=== PATIENT | male | born 1995 | race Caucasian/White ===

== ENCOUNTER 2016-06-13 20:29 | Emergency (ER) | payer OTHER ==
--- NOTE | 2016-06-13 22:30 | REPUSA ---
TESTICULAR SONOGRAM History: Pain. Comparison studies: None available Technique: Multiple real-time images of the scrotal contents were obtained using grayscale and color spectral Doppler flow . Findings: Right testes measures 5.4 x 2.9 x 3.3 cm the left testes measures 5.3 x 2.9 x 3.4 cm. Doppler flow wa s established to both testes although slightly increased on left. There are no findings suspicious fo r testicular torsion. There are also no findings suspicious for testicular malignancy. Both epididymis measure 8 mm, with bilateral simple cysts versus spermatoceles measuring between 3-3. 6 mm on right and 4.1 mm on left. No findings suspicious for epididymitis are identified. A physiologic amount of fluid is identified i n each hemiscrotom. Impression: 1. No evidence of testicular torsion at this time. Mildly increased flow to the left testes noted whi ch is nonspecific although may suggest orchitis in the proper clinical context. 2. Both epididymis measure 8 mm, with bilateral simple cysts versus spermatoceles measuring between 3 -3.6 mm on right and 4.1 mm on left.
[2016-06-13] MEDS ORDERED: cefTRIAXone SOD 250 MG VIAL (J0696) As Ordered ONE (23:35)
[2016-06-13] MEDS ORDERED: DOXYCYCLINE HYCLATE 100 MG TAB As Ordered ONE (23:35)
[2016-06-13] MEDS ORDERED: LIDOCAINE 1% MDV 20ML VIAL As Ordered ONE (23:35)
[2016-06-13] MEDS ORDERED: KETOROLAC 30 MG/ML VIAL (J1885) As Ordered ONE (23:35)
--- NOTE | 2016-06-14 00:19 | EDDOCDS ---
Physician Documentation [facility] Name: Santos Treadwell Age: 20 yrs Sex: Male : 1995 Arrival Date: 06/13/2016 Time: 20:29 Bed 7 Private MD: DARWIN MARSHALL Disposition: 06/13 23:31 Critical Care: Critical care not applicable. 06/14 00:08 A printed prescription for a controlled substance(s) was provided because [facility] is not able to accept EPCS. Disposition: 06/13/16 23:32 Discharged to Home/Self Care. Impression: Epididymo-orchitis. - Condition is Stable. - Discharge Instructions: Epididymitis. - Prescriptions for [place] 5- 325 mg Oral Tablet - take 1 tablet by ORAL route every 6 hours As needed MDD: 4 tabs; 20 tablet. Doxycycline Monohydrate 100 mg Oral Tablet - take 1 tablet by ORAL route every 12 hours for 10 days; 20 tablet. - Medication Reconciliation, Local Pharmacy Hours form. - Follow up: Darwin [facility]; When: 2 - 3 days; Reason: Recheck today's complaints, Continuance of care. - Problem is new. - Symptoms have improved. HPI: 06/13 23:06 This 20 yrs old Male presents to ER via Wheelchair with complaints of Groin Pain. pc 23:06 The history is obtained from the patient. He has been having left testicular pain and pc painful "lumps" in his left grin for "maybe a day". He denies any urethral discharge, denies trauma, is sexually active with protection. At their worst, the symptoms were a 7 out of 10. In the emergency department, the symptoms are a 7 out of 10. The patient has not experienced similar symptoms in the past. The patient has not recently seen a physician. Historical: - Allergies: no known allergies; - Home Meds: 1. none - PMHx: none; - PSHx: none; - The history from nurses notes was reviewed: and I agree with what is documented. - Social history: Smoking status: Patient states former smoker of tobacco. No barriers to communication noted, The patient speaks fluent Bruneian. - : The pt / caregiver states he / she is not on anticoagulants. Home medication list is obtained from the patient. - Hospitalizations: : No recent hospitalization is reported. - Exposure Risk Screening:: None identified. - Immunization history:: All immunizations up-to-date. - Family history: Not pertinent. - Social history:: the patient is a non-smoker, the patient does not drink alcohol. ROS: 23:06 All systems are negative except as listed. pc Exam: 23:06 General Appearance: no acute distress, alert. pc 23:06 Abdomen: soft, non-tender, no organomegaly, normal bowel sounds, no masses appreciated, no hernias palpated with/without gravity or Valsalva 23:06 : Male external genitalia: tenderness, bilateral epididymis, without skin color changes, without testicular pain, with mild painful lymph adenopathy in both inguinal areas. No urethral discharge noted. Vital Signs: 20:31 BP 122 / 57; Pulse 64; Resp 18; Temp 98.9; Pulse Ox 99% ; Weight 87.54 kg / 192.99 lbs; elp Height 73 in. (185.42 cm); Pain 7/10; 06/14 00:16 BP 129 / 60; Pulse 57; Resp 18; Temp 97.2; Pulse Ox 96% ; Pain 1/10; mlc 06/13 20:31 Body Mass Index 25.46 (87.54 kg, 185.42 cm) elp MDM: 06/13 21:20 Scrotal, US Ordered. EDMS 21:31 DUPLEX SCAN LIMITED (DOPPLER) Ordered. EDMS 23:06 Differential Diagnosis: bilateral epididymitis. left worse than right; bilateral pc inguinal lymph adenopathy. Plan: US, labs, meds, advice. 23:13 GC & Chlamydia Amplification Ordered. EDMS 23:13 Test interpretation: Ultrasound - interpreted by Radiologist, Scrotal bilateral pc epididymal cysts. no testicular torsion. increased blood flow to left testes which may indicated orchitis. 23:31 Scrotal, US Reviewed. pc 23:31 cefTRIAXone 250 mg IM once ordered. pc 23:31 Doxycycline 100 mg PO once ordered. pc 23:31 Data reviewed: old medical records, vital signs, nurses notes, all radiology studies pc and available results. The patient has been re-examined and re-evaluated. The patient's symptoms have mildly improved after treatment. Disposition: The historical points, examination findings, and any diagnostic results supporting the provided diagnosis, were discussed with the patient or legal guardian. The need for outpatient follow up with the provider listed on their discharge instructions was discussed. They were encouraged to return to [facility], or the nearest ED, if symptoms worsen/persist, or for any other questions/concerns. 23:32 ketorolac 60 mg IM once ordered. 23:40 Financial registration complete. pm4 23:46 [facility] Payment Agreement was scanned into PowerSmart and attached to record. pm4 Administered Medications: 23:45 Drug: cefTRIAXone 250 mg [ceftriaxone 250 mg solution for injection (250 mg)] Route: mlc IM; Site: left gluteus; 06/14 00:17 Follow up: Response: No Adverse Reaction [facility] 06/13 23:45 Drug: Doxycycline 100 mg [doxycycline hyclate 100 mg tablet (1 tabs)] Route: PO; [facility] 06/14 00:17 Follow up: Response: No Adverse Reaction [facility] 06/13 23:45 Drug: ketorolac 60 mg [ketorolac 30 mg/mL (1 mL) injection solution (2 mL)] Route: IM; [facility] Site: right gluteus; 06/14 00:17 Follow up: Response: Pain is decreased [facility] Signatures: Dispatcher MedHost EDDennis Moody MD MD Crissy Sosa RN RN rs3 Maira Hanson RN RN [facility] Jarad Ivey, [place] Reg pm4 The chart was reviewed and I authenticate all verbal orders and agree with the evaluation and treatment provided.Attachments: 06/13 23:46 [facility] Payment Agreement pm4 MTDD
--- NOTE | 2016-06-14 00:19 | EDDOCDS ---
Nurse's Notes [facility] Name: Santos Treadwell Age: 20 yrs Sex: Male : 1995 Arrival Date: 06/13/2016 Time: 20:29 Bed 7 Private MD: DARWIN MARSHALL Diagnosis: Epididymo-orchitis Presentation: 06/13 20:33 Presenting complaint: Patient states: Scrotal pain since this evening. sudden onset of rs3 pain with severe cough this evening. Adult Sepsis Screening: The patient does not have new or worsening altered mentation. Patient's respiratory rate is less than 22. Systolic blood pressure is greater than 100. Patient has a qSOFA score of 0- Negative Sepsis Screen. Suicide/Homicide risk assessment- the patient denies having any suicidal and/or homicidal ideations and does not present with any other emotional, behavioral or mental health complaints. 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 Transition of care: patient was not received from another setting of care. 20:33 Acuity: DORITA Level 3 rs3 20:33 Method Of Arrival: Wheelchair rs3 Triage Assessment: 20:36 General: Appears in no apparent distress. Pain: Pain currently is 7 out of 10 on a pain rs3 scale. Pt Declines HIV testing. GI: Reports scrotal pain. Historical: - Allergies: no known allergies; - Home Meds: 1. none - PMHx: none; - PSHx: none; - The history from nurses notes was reviewed: and I agree with what is documented. - Social history: Smoking status: Patient states former smoker of tobacco. No barriers to communication noted, The patient speaks fluent Maltese. - : The pt / caregiver states he / she is not on anticoagulants. Home medication list is obtained from the patient. - Hospitalizations: : No recent hospitalization is reported. - Exposure Risk Screening:: None identified. - Immunization history:: All immunizations up-to-date. - Family history: Not pertinent. - Social history:: the patient is a non-smoker, the patient does not drink alcohol. Screenin:24 Screening information is obtained from the patient. Fall risk: No risks identified. mlc Assistance ADL's: requires no assistance with activities of daily living. Abuse/DV Screen: The patient / caregiver reports he/she is: not in a situation that causes fear, pain or injury. Nutritional screening: No deficits noted. Advance Directives: Currently, there is a health care proxy, Ash Treadwell, brother. There is an active Power of Director Medical Economics, Ash Treadwell, brother. 23:24 home support is adequate. [facility] Assessment: 23:24 General: Appears in no apparent distress, comfortable, Behavior is appropriate for age, mlc cooperative. Pain: Location: left testicle Pain currently is 7 out of 10 on a pain scale. Neurological: Level of Consciousness is awake, alert, obeys commands, Oriented to person, place, time. Respiratory: Airway is patent Respiratory effort is even, unlabored, Respiratory pattern is regular, Breath sounds are clear bilaterally. Reports difficulty breathing after exercise. GI: Abdomen is flat, non- distended Bowel sounds present X 4 quads. Abd is soft X 4 quads. : Urine is clear. Derm: Skin is pink, warm & dry. 23:46 Reassessment: Patient appears in no apparent distress at this time. pt medicated per [facility] order. 06/14 00:16 General: Appears in no apparent distress, comfortable, Behavior is cooperative. Pain: [facility] Pain currently is 1 out of 10 on a pain scale. Neurological: Level of Consciousness is awake, alert, Oriented to person, place, time. Respiratory: Airway is patent Respiratory effort is even, unlabored, Respiratory pattern is regular. Vital Signs: 06/13 20:31 BP 122 / 57; Pulse 64; Resp 18; Temp 98.9; Pulse Ox 99% ; Weight 87.54 kg; Height 73 elp in. (185.42 cm); Pain 7/10; 06/14 00:16 BP 129 / 60; Pulse 57; Resp 18; Temp 97.2; Pulse Ox 96% ; Pain 1/10; mlc 06/13 20:31 Body Mass Index 25.46 (87.54 kg, 185.42 cm) el Vitals: 06/13 20:31 Log In Time: June 13, 2016 at 20:30. [facility] ED Course: 20:30 Patient visited by Terri Cardoza PCA. elp 20:30 [facility], D[facility] MICHEL[facility] is Private Physician. elp 20:30 Patient moved to Waiting elp 20:31 Patient moved to Pre RCE elp 20:35 Triage Initiated rs3 21:30 Patient moved to Ultrasound br3 21:47 Patient moved to Pre RCE br3 22:48 Maira Hanson RN is Primary Nurse. kmg1 22:48 Patient moved to 7 kmg1 22:59 Patient visited by Casa Duarte PCA. kb5 23:02 Dennis Andre MD is Attending Physician. pc 23:04 Patient visited by Casa Duarte PCA. kb5 23:06 Patient visited by Dennis Andre MD. pc 23:22 Scrotal, US Returned. EDMS 23:24 The patient / caregiver is instructed regarding the plan of care and ED course. mlc 23:26 Patient visited by Maira Hanson RN. mlc 23:26 GC & Chlamydia Amplification Sent. mlc 23:32 Darwin Michelle [facility] is Referral Physician. pc 23:45 Patient name changed from Santos\S\\S\Onofrei\S\ to Santos\S\Bakari\S\Onofrei. EDMS 23:46 Patient visited by Maira Hanson RN. [facility] 23:46 [facility] [place] Agreement was scanned into FolderBoy and attached to record. pm4 06/14 00:16 No IV's were initiated during this patient's visit. No procedures done that require [facility] assistance. Administered Medications: 06/13 23:45 Drug: cefTRIAXone 250 mg [ceftriaxone 250 mg solution for injection (250 mg)] Route: mlc IM; Site: left gluteus; 06/14 00:17 Follow up: Response: No Adverse Reaction [facility] 06/13 23:45 Drug: Doxycycline 100 mg [doxycycline hyclate 100 mg tablet (1 tabs)] Route: PO; [facility] 06/14 00:17 Follow up: Response: No Adverse Reaction [facility] 06/13 23:45 Drug: ketorolac 60 mg [ketorolac 30 mg/mL (1 mL) injection solution (2 mL)] Route: IM; [facility] Site: right gluteus; 06/14 00:17 Follow up: Response: Pain is decreased [facility] Order Results: Radiology Order: Scrotal, US Test: Scrotal, US REASON FOR EXAMINATION: testicular pain; ; TESTICULAR SONOGRAM; History: Pain.; Comparison studies: None available; Technique: Multiple real-time images of the scrotal contents were obtained using grayscale and color; spectral Doppler flow .; Findings:; Right testes measures 5.4 x 2.9 x 3.3 cm the left testes measures 5.3 x 2.9 x 3.4 cm. Doppler flow wa; s established to both testes although slightly increased on left. There are no findings suspicious fo; r testicular torsion. There are also no findings suspicious for testicular malignancy.; Both epididymis measure 8 mm, with bilateral simple cysts versus spermatoceles measuring between 3-3.; 6 mm on right and 4.1 mm on left.; No findings suspicious for epididymitis are identified. A physiologic amount of fluid is identified i; n each hemiscrotom.; Impression:; 1. No evidence of testicular torsion at this time. Mildly increased flow to the left testes noted whi; ch is nonspecific although may suggest orchitis in the proper clinical context.; 2. Both epididymis measure 8 mm, with bilateral simple cysts versus spermatoceles measuring between 3; -3.6 mm on right and 4.1 mm on left.; ; Outcome: 06/13 23:32 Discharge ordered by Provider. pc 06/14 00:16 Discharge Assessment: Patient awake, alert and oriented x 3. No cognitive and/or mlc functional deficits noted. Patient verbalized understanding of disposition instructions. patient administered narcotics - no. The following High Risk Discharge criteria are identified: None. Discharged to home ambulatory, with friend. Condition: good Condition: stable. Discharge instructions given to patient, Instructed on discharge instructions, follow up and referral plans. medication usage, no driving heavy equipment, Demonstrated understanding of instructions, medications, Pt was receptive of discharge instructions/ teaching. Prescriptions given X 2. No special radiology studies were completed. Ultrasound Study completed. Property sent home with patient. 00:17 Patient left the ED. [facility] Signatures: Dispatcher MedHost EDMS Dennis Andre MD MD Dawna Moore RN RN kmg1 Casa Duarte, BAR HELPER BAR HELPER kb5 Crissy Sosa RN RN rs3 Pamela Mesa br3 Terri Cardoza, BAR HELPER BAR HELPER elp Maira Hanson RN RN [facility] Jarad Ivey, Reg Reg pm4 MTDD
--- NOTE | 2016-06-16 01:19 | EDDOCDS ---
Nurse's Notes [facility] Name: Santos Treadwell Age: 20 yrs Sex: Male : 1995 Arrival Date: 06/13/2016 Time: 20:29 Bed 7 Private MD: DARWIN MARSHALL Diagnosis: Epididymo-orchitis Presentation: 06/13 20:33 Presenting complaint: Patient states: Scrotal pain since this evening. sudden onset of rs3 pain with severe cough this evening. Adult Sepsis Screening: The patient does not have new or worsening altered mentation. Patient's respiratory rate is less than 22. Systolic blood pressure is greater than 100. Patient has a qSOFA score of 0- Negative Sepsis Screen. Suicide/Homicide risk assessment- the patient denies having any suicidal and/or homicidal ideations and does not present with any other emotional, behavioral or mental health complaints. Status: The patient is an active duty district manager postal service. Transition of care: patient was not received from another setting of care. 20:33 Acuity: DORITA Level 3 rs3 20:33 Method Of Arrival: Wheelchair rs3 Triage Assessment: 20:36 General: Appears in no apparent distress. Pain: Pain currently is 7 out of 10 on a pain rs3 scale. Pt Declines HIV testing. GI: Reports scrotal pain. Historical: - Allergies: no known allergies; - Home Meds: 1. none - PMHx: none; - PSHx: none; - The history from nurses notes was reviewed: and I agree with what is documented. - Social history: Smoking status: Patient states former smoker of tobacco. No barriers to communication noted, The patient speaks fluent Wolof. - : The pt / caregiver states he / she is not on anticoagulants. Home medication list is obtained from the patient. - Hospitalizations: : No recent hospitalization is reported. - Exposure Risk Screening:: None identified. - Immunization history:: All immunizations up-to-date. - Family history: Not pertinent. - Social history:: the patient is a non-smoker, the patient does not drink alcohol. Screenin:24 Screening information is obtained from the patient. Fall risk: No risks identified. mlc Assistance ADL's: requires no assistance with activities of daily living. Abuse/DV Screen: The patient / caregiver reports he/she is: not in a situation that causes fear, pain or injury. Nutritional screening: No deficits noted. Advance Directives: Currently, there is a health care proxy, Ash Treadwell, brother. There is an active Power of Inspector Process, Ash Treadwell, brother. 23:24 home support is adequate. [facility] Assessment: 23:24 General: Appears in no apparent distress, comfortable, Behavior is appropriate for age, mlc cooperative. Pain: Location: left testicle Pain currently is 7 out of 10 on a pain scale. Neurological: Level of Consciousness is awake, alert, obeys commands, Oriented to person, place, time. Respiratory: Airway is patent Respiratory effort is even, unlabored, Respiratory pattern is regular, Breath sounds are clear bilaterally. Reports difficulty breathing after exercise. GI: Abdomen is flat, non- distended Bowel sounds present X 4 quads. Abd is soft X 4 quads. : Urine is clear. Derm: Skin is pink, warm & dry. 23:46 Reassessment: Patient appears in no apparent distress at this time. pt medicated per [facility] order. 06/14 00:16 General: Appears in no apparent distress, comfortable, Behavior is cooperative. Pain: [facility] Pain currently is 1 out of 10 on a pain scale. Neurological: Level of Consciousness is awake, alert, Oriented to person, place, time. Respiratory: Airway is patent Respiratory effort is even, unlabored, Respiratory pattern is regular. Vital Signs: 06/13 20:31 BP 122 / 57; Pulse 64; Resp 18; Temp 98.9; Pulse Ox 99% ; Weight 87.54 kg; Height 73 elp in. (185.42 cm); Pain 7/10; 06/14 00:16 BP 129 / 60; Pulse 57; Resp 18; Temp 97.2; Pulse Ox 96% ; Pain 1/10; mlc 06/13 20:31 Body Mass Index 25.46 (87.54 kg, 185.42 cm) el Vitals: 06/13 20:31 Log In Time: June 13, 2016 at 20:30. [facility] ED Course: 20:30 Patient visited by Terri Cardoza PCA. elp 20:30 [facility], DARWIN MICHELLE is Private Physician. elp 20:30 Patient moved to Waiting elp 20:31 Patient moved to Pre RCE elp 20:35 Triage Initiated rs3 21:30 Patient moved to Ultrasound br3 21:47 Patient moved to Pre RCE br3 22:48 Maira Hanson RN is Primary Nurse. kmg1 22:48 Patient moved to 7 kmg1 22:59 Patient visited by Casa Duarte PCA. kb5 23:02 Dennis Andre MD is Attending Physician. pc 23:04 Patient visited by Casa Duarte PCA. kb5 23:06 Patient visited by Dennis Andre MD. pc 23:22 Scrotal, US Returned. EDMS 23:24 The patient / caregiver is instructed regarding the plan of care and ED course. mlc 23:26 Patient visited by Maira Hanson RN. mlc 23:26 GC & Chlamydia Amplification Sent. mlc 23:32 Darwin Michelle [facility] is Referral Physician. pc 23:45 Patient name changed from Santos\S\\S\Onofrei\S\ to Santos\S\Bakari\S\Onofrei. EDMS 23:46 Patient visited by Maira Hanson RN. [facility] 23:46 [facility] Payment Agreement was scanned into [employer] and attached to record. pm4 06/14 00:16 No IV's were initiated during this patient's visit. No procedures done that require [facility] assistance. 12:14 Radiology Report was scanned into [employer] and attached to record. gb Administered Medications: 06/13 23:45 Drug: cefTRIAXone 250 mg [ceftriaxone 250 mg solution for injection (250 mg)] Route: mlc IM; Site: left gluteus; 06/14 00:17 Follow up: Response: No Adverse Reaction [facility] 06/13 23:45 Drug: Doxycycline 100 mg [doxycycline hyclate 100 mg tablet (1 tabs)] Route: PO; [facility] 06/14 00:17 Follow up: Response: No Adverse Reaction [facility] 06/13 23:45 Drug: ketorolac 60 mg [ketorolac 30 mg/mL (1 mL) injection solution (2 mL)] Route: IM; [facility] Site: right gluteus; 06/14 00:17 Follow up: Response: Pain is decreased mlc Order Results: Lab Order: GC & Chlamydia Amplification; SPEC'M 06/13/16 23:21 Test: CHLAMYDIA DNA AMPLIFICATION; Value: NEGATIVE; Range: NEGATIVE; Status: F Test: GC DNA AMPLIFICATION; Value: NEGATIVE; Range: NEGATIVE; Status: F Radiology Order: Scrotal, US Test: Scrotal, US REASON FOR EXAMINATION: testicular pain; ; TESTICULAR SONOGRAM; History: Pain.; Comparison studies: None available; Technique: Multiple real-time images of the scrotal contents were obtained using grayscale and color; spectral Doppler flow .; Findings:; Right testes measures 5.4 x 2.9 x 3.3 cm the left testes measures 5.3 x 2.9 x 3.4 cm. Doppler flow wa; s established to both testes although slightly increased on left. There are no findings suspicious fo; r testicular torsion. There are also no findings suspicious for testicular malignancy.; Both epididymis measure 8 mm, with bilateral simple cysts versus spermatoceles measuring between 3-3.; 6 mm on right and 4.1 mm on left.; No findings suspicious for epididymitis are identified. A physiologic amount of fluid is identified i; n each hemiscrotom.; Impression:; 1. No evidence of testicular torsion at this time. Mildly increased flow to the left testes noted whi; ch is nonspecific although may suggest orchitis in the proper clinical context.; 2. Both epididymis measure 8 mm, with bilateral simple cysts versus spermatoceles measuring between 3; -3.6 mm on right and 4.1 mm on left.; ; Outcome: 06/13 23:32 Discharge ordered by Provider. pc 06/14 00:16 Discharge Assessment: Patient awake, alert and oriented x 3. No cognitive and/or mlc functional deficits noted. Patient verbalized understanding of disposition instructions. patient administered narcotics - no. The following High Risk Discharge criteria are identified: None. Discharged to home ambulatory, with friend. Condition: good Condition: stable. Discharge instructions given to patient, Instructed on discharge instructions, follow up and referral plans. medication usage, no driving heavy equipment, Demonstrated understanding of instructions, medications, Pt was receptive of discharge instructions/ teaching. Prescriptions given X 2. No special radiology studies were completed. Ultrasound Study completed. Property sent home with patient. 00:17 Patient left the ED. [facility] Signatures: Dispatcher MedHost EDMS Dennis Andre MD MD Dawna Moore RN RN kmg1 Gloria Null, Reg Reg gb Casa Duarte, JOB INTERVIEWER JOB INTERVIEWER kb5 Crissy Sosa,RN RN rs3 Pamela Mesa br3 Terri Cardoza, JOB INTERVIEWER JOB INTERVIEWER elp Maira Hanson,RN RN mlc Jarad Ivey, Reg Reg pm4 Chart Complete MTDD
--- NOTE | 2016-06-16 01:19 | EDDOCDS ---
Physician Documentation [facility] Name: Santos Treadwell Age: 20 yrs Sex: Male : 1995 Arrival Date: 06/13/2016 Time: 20:29 Bed 7 Private MD: DARWIN MARSHALL Disposition: 06/13 23:31 Critical Care: Critical care not applicable. 06/14 00:08 A printed prescription for a controlled substance(s) was provided because [facility] is not able to accept EPCS. Disposition: 06/13/16 23:32 Discharged to Home/Self Care. Impression: Epididymo-orchitis. - Condition is Stable. - Discharge Instructions: Epididymitis. - Prescriptions for [place] 5- 325 mg Oral Tablet - take 1 tablet by ORAL route every 6 hours As needed MDD: 4 tabs; 20 tablet. Doxycycline Monohydrate 100 mg Oral Tablet - take 1 tablet by ORAL route every 12 hours for 10 days; 20 tablet. - Medication Reconciliation, Local Pharmacy Hours form. - Follow up: Darwin Michelle [facility]; When: 2 - 3 days; Reason: Recheck today's complaints, Continuance of care. - Problem is new. - Symptoms have improved. HPI: 06/13 23:06 This 20 yrs old Male presents to ER via Wheelchair with complaints of Groin Pain. pc 23:06 The history is obtained from the patient. He has been having left testicular pain and pc painful "lumps" in his left grin for "maybe a day". He denies any urethral discharge, denies trauma, is sexually active with protection. At their worst, the symptoms were a 7 out of 10. In the emergency department, the symptoms are a 7 out of 10. The patient has not experienced similar symptoms in the past. The patient has not recently seen a physician. Historical: - Allergies: no known allergies; - Home Meds: 1. none - PMHx: none; - PSHx: none; - The history from nurses notes was reviewed: and I agree with what is documented. - Social history: Smoking status: Patient states former smoker of tobacco. No barriers to communication noted, The patient speaks fluent Swedish. - : The pt / caregiver states he / she is not on anticoagulants. Home medication list is obtained from the patient. - Hospitalizations: : No recent hospitalization is reported. - Exposure Risk Screening:: None identified. - Immunization history:: All immunizations up-to-date. - Family history: Not pertinent. - Social history:: the patient is a non-smoker, the patient does not drink alcohol. ROS: 23:06 All systems are negative except as listed. pc Exam: 23:06 General Appearance: no acute distress, alert. pc 23:06 Abdomen: soft, non-tender, no organomegaly, normal bowel sounds, no masses appreciated, no hernias palpated with/without gravity or Valsalva 23:06 : Male external genitalia: tenderness, bilateral epididymis, without skin color changes, without testicular pain, with mild painful lymph adenopathy in both inguinal areas. No urethral discharge noted. Vital Signs: 20:31 BP 122 / 57; Pulse 64; Resp 18; Temp 98.9; Pulse Ox 99% ; Weight 87.54 kg / 192.99 lbs; elp Height 73 in. (185.42 cm); Pain 7/10; 06/14 00:16 BP 129 / 60; Pulse 57; Resp 18; Temp 97.2; Pulse Ox 96% ; Pain 1/10; mlc 06/13 20:31 Body Mass Index 25.46 (87.54 kg, 185.42 cm) elp MDM: 06/13 21:20 Scrotal, US Ordered. EDMS 21:31 DUPLEX SCAN LIMITED (DOPPLER) Ordered. EDMS 23:06 Differential Diagnosis: bilateral epididymitis. left worse than right; bilateral pc inguinal lymph adenopathy. Plan: US, labs, meds, advice. 23:13 GC & Chlamydia Amplification Ordered. EDMS 23:13 Test interpretation: Ultrasound - interpreted by Radiologist, Scrotal bilateral pc epididymal cysts. no testicular torsion. increased blood flow to left testes which may indicated orchitis. 23:31 Scrotal, US Reviewed. pc 23:31 cefTRIAXone 250 mg IM once ordered. pc 23:31 Doxycycline 100 mg PO once ordered. pc 23:31 Data reviewed: old medical records, vital signs, nurses notes, all radiology studies pc and available results. The patient has been re-examined and re-evaluated. The patient's symptoms have mildly improved after treatment. Disposition: The historical points, examination findings, and any diagnostic results supporting the provided diagnosis, were discussed with the patient or legal guardian. The need for outpatient follow up with the provider listed on their discharge instructions was discussed. They were encouraged to return to [facility], or the nearest ED, if symptoms worsen/persist, or for any other questions/concerns. 23:32 ketorolac 60 mg IM once ordered. 23:40 Financial registration complete. pm4 23:46 [facility] Payment Agreement was scanned into [employer] and attached to record. pm4 06/14 12:14 Radiology Report was scanned into [employer] and attached to record. gb Administered Medications: 06/13 23:45 Drug: cefTRIAXone 250 mg [ceftriaxone 250 mg solution for injection (250 mg)] Route: mlc IM; Site: left gluteus; 06/14 00:17 Follow up: Response: No Adverse Reaction [facility] 06/13 23:45 Drug: Doxycycline 100 mg [doxycycline hyclate 100 mg tablet (1 tabs)] Route: PO; mlc 06/14 00:17 Follow up: Response: No Adverse Reaction [facility] 06/13 23:45 Drug: ketorolac 60 mg [ketorolac 30 mg/mL (1 mL) injection solution (2 mL)] Route: IM; [facility] Site: right gluteus; 06/14 00:17 Follow up: Response: Pain is decreased [facility] Signatures: Dispatcher Med[employer] EDMS Dennis Andre MD MD Gloria Null, Reg Reg Crissy Sosa RN RN rs3 Maira Hanson RN RN [facility] Jarad Ivey, Reg Reg pm4 The chart was reviewed and I authenticate all verbal orders and agree with the evaluation and treatment provided.Attachments: 06/13 23:46 [facility] Payment Agreement pm4 Chart Complete MTDD
--- NOTE | 2016-06-16 01:19 | EDDOCDS ---
Physician Documentation [facility] Name: Santos Treadwell Age: 20 yrs Sex: Male : 1995 Arrival Date: 06/13/2016 Time: 20:29 Bed 7 Private MD: DARWIN MARSHALL Disposition: 06/13 23:31 Critical Care: Critical care not applicable. 06/14 00:08 A printed prescription for a controlled substance(s) was provided because [facility] is not able to accept EPCS. Disposition: 06/13/16 23:32 Discharged to Home/Self Care. Impression: Epididymo-orchitis. - Condition is Stable. - Discharge Instructions: Epididymitis. - Prescriptions for [place] 5- 325 mg Oral Tablet - take 1 tablet by ORAL route every 6 hours As needed MDD: 4 tabs; 20 tablet. Doxycycline Monohydrate 100 mg Oral Tablet - take 1 tablet by ORAL route every 12 hours for 10 days; 20 tablet. - Medication Reconciliation, Local Pharmacy Hours form. - Follow up: Darwin [facility]; When: 2 - 3 days; Reason: Recheck today's complaints, Continuance of care. - Problem is new. - Symptoms have improved. HPI: 06/13 23:06 This 20 yrs old Male presents to ER via Wheelchair with complaints of Groin Pain. pc 23:06 The history is obtained from the patient. He has been having left testicular pain and pc painful "lumps" in his left grin for "maybe a day". He denies any urethral discharge, denies trauma, is sexually active with protection. At their worst, the symptoms were a 7 out of 10. In the emergency department, the symptoms are a 7 out of 10. The patient has not experienced similar symptoms in the past. The patient has not recently seen a physician. Historical: - Allergies: no known allergies; - Home Meds: 1. none - PMHx: none; - PSHx: none; - The history from nurses notes was reviewed: and I agree with what is documented. - Social history: Smoking status: Patient states former smoker of tobacco. No barriers to communication noted, The patient speaks fluent Albanian. - : The pt / caregiver states he / she is not on anticoagulants. Home medication list is obtained from the patient. - Hospitalizations: : No recent hospitalization is reported. - Exposure Risk Screening:: None identified. - Immunization history:: All immunizations up-to-date. - Family history: Not pertinent. - Social history:: the patient is a non-smoker, the patient does not drink alcohol. ROS: 23:06 All systems are negative except as listed. pc Exam: 23:06 General Appearance: no acute distress, alert. pc 23:06 Abdomen: soft, non-tender, no organomegaly, normal bowel sounds, no masses appreciated, no hernias palpated with/without gravity or Valsalva 23:06 : Male external genitalia: tenderness, bilateral epididymis, without skin color changes, without testicular pain, with mild painful lymph adenopathy in both inguinal areas. No urethral discharge noted. Vital Signs: 20:31 BP 122 / 57; Pulse 64; Resp 18; Temp 98.9; Pulse Ox 99% ; Weight 87.54 kg / 192.99 lbs; elp Height 73 in. (185.42 cm); Pain 7/10; 06/14 00:16 BP 129 / 60; Pulse 57; Resp 18; Temp 97.2; Pulse Ox 96% ; Pain 1/10; mlc 06/13 20:31 Body Mass Index 25.46 (87.54 kg, 185.42 cm) elp MDM: 06/13 21:20 Scrotal, US Ordered. EDMS 21:31 DUPLEX SCAN LIMITED (DOPPLER) Ordered. EDMS 23:06 Differential Diagnosis: bilateral epididymitis. left worse than right; bilateral pc inguinal lymph adenopathy. Plan: US, labs, meds, advice. 23:13 GC & Chlamydia Amplification Ordered. EDMS 23:13 Test interpretation: Ultrasound - interpreted by Radiologist, Scrotal bilateral pc epididymal cysts. no testicular torsion. increased blood flow to left testes which may indicated orchitis. 23:31 Scrotal, US Reviewed. pc 23:31 cefTRIAXone 250 mg IM once ordered. pc 23:31 Doxycycline 100 mg PO once ordered. pc 23:31 Data reviewed: old medical records, vital signs, nurses notes, all radiology studies pc and available results. The patient has been re-examined and re-evaluated. The patient's symptoms have mildly improved after treatment. Disposition: The historical points, examination findings, and any diagnostic results supporting the provided diagnosis, were discussed with the patient or legal guardian. The need for outpatient follow up with the provider listed on their discharge instructions was discussed. They were encouraged to return to [facility], or the nearest ED, if symptoms worsen/persist, or for any other questions/concerns. 23:32 ketorolac 60 mg IM once ordered. 23:40 Financial registration complete. pm4 23:46 [facility] Payment Agreement was scanned into [employer] and attached to record. pm4 06/14 12:14 Radiology Report was scanned into [employer] and attached to record. gb Administered Medications: 06/13 23:45 Drug: cefTRIAXone 250 mg [ceftriaxone 250 mg solution for injection (250 mg)] Route: mlc IM; Site: left gluteus; 06/14 00:17 Follow up: Response: No Adverse Reaction [facility] 06/13 23:45 Drug: Doxycycline 100 mg [doxycycline hyclate 100 mg tablet (1 tabs)] Route: PO; mlc 06/14 00:17 Follow up: Response: No Adverse Reaction [facility] 06/13 23:45 Drug: ketorolac 60 mg [ketorolac 30 mg/mL (1 mL) injection solution (2 mL)] Route: IM; [facility] Site: right gluteus; 06/14 00:17 Follow up: Response: Pain is decreased [facility] Signatures: Dispatcher MedHost EDMS Dennis Andre MD MD Gloria Null, Reg Reg Crissy Sosa RN RN rs3 Maira Hanson RN RN [facility] Jarad Ivey, Reg Reg pm4 The chart was reviewed and I authenticate all verbal orders and agree with the evaluation and treatment provided.Attachments: 06/13 23:46 [facility] Payment Agreement pm4 Chart Complete MTDD
== END 2016-06-14 00:17 | disposition home or self-care (01) ==
LOC: M ED 20:29
DX: N45.3 Epididymo-orchitis (principal)
CPT/HCPCS: 76870; 87491; 87591; 93976; 96372; 99284; J0696; J1885

== ENCOUNTER → 2016-08-10 | Day surgery (SDC) | payer OTHER ==
[~2016-08-10] VITALS: Ht 185.4 cm; Wt 93.0 kg
[~2016-08-10] MED LIST: ALBU17IN INH; ATROPINE SULF 1MG/10ML SYRINGE (J0461) As Ordered ONE; BREO1INH INH; BUPIVACAINE HCL 0.25% 30 ML VIAL As Ordered ONE; EFFE37.527 PO; GLYCOPYRROLATE INJ 0.2 MG/ML 2 ML VIAL As Ordered ONE; KETOROLAC 30 MG/ML VIAL (J1885) As Ordered ONE; KETOROLAC 30 MG/ML VIAL (J1885) IV PRN; KETOROLAC 60 MG/2 ML VIAL (J1885) As Ordered ONE; LIDOCAINE 1% SDV INJ 30 ML VIAL As Ordered ONE; LIDOCAINE 2% INJ 100 MG/5 ML SDV (FOR ANES.) As Ordered ONE; LR 1,000 ML IV SCH; METOCLOPRAMIDE INJ 10MG/2ML VIAL (J2765) IV PRN; MIDAZOLAM INJ 2 MG/2 ML VIAL (J2250) As Ordered ONE; MORPHINE 2 MG/ML 1ML SYRINGE IV PRN; NAPR500T2 PO; NEOSTIGMINE 1MG/ML 5 ML SYRINGE (J2710) As Ordered ONE; NORCO, ANEXSIA 5/325MG TABLET (HYDROcodone/ACETAMINOPHEN) PO PRN; ONDANSETRON 4MG/2ML VIAL (J2405) As Ordered ONE; ONDANSETRON 4MG/2ML VIAL (J2405) IV PRN; PERCOCET 5MG/325MG TAB PO PRN; PROPOFOL 200 MG/20 ML VIAL As Ordered ONE; ROCURONIUM BROMIDE 50 MG/5 ML VIAL As Ordered ONE; TYLE325C PO; ZYRT10CA PO; dexameTHASONE 4 MG/ML 1ML VIAL (J1100) As Ordered ONE; fentaNYL 250 MCG/5 ML INJECTION (J3010) As Ordered ONE
[2016-08-10] MEDS: fentaNYL 100 MCG/2 ML INJECTION (J3010) IV PRN ×4 (15:20→15:41)
[2016-08-10 18:10] VITALS: BP 129/65
== END | disposition home or self-care (01) ==
LOC: M SDC 10:27
PROVIDERS: ATTEND Surgery
DX: K40.20 Bilateral inguinal hernia, without obstruction or gangrene, not specified as recurrent (principal); D17.6 Benign lipomatous neoplasm of spermatic cord; F43.10 Post-traumatic stress disorder, unspecified; F41.9 Anxiety disorder, unspecified; J45.909 Unspecified asthma, uncomplicated; Z87.891 Personal history of nicotine dependence; Z79.899 Other long term (current) drug therapy
CPT/HCPCS: 49650; 88302; C1781; J0461; J0690; J1100; J1885; J2250; J2405; J2710; J3010

== ENCOUNTER 2016-09-21 15:46 | Inpatient (IN) | payer OTHER ==
[~2016-09-21] VITALS: Ht 185.4 cm; Wt 95.3 kg
[~2016-09-21 15:46] MED LIST changes: -ATROPINE SULF 1MG/10ML SYRINGE (J0461) As Ordered ONE; -BUPIVACAINE HCL 0.25% 30 ML VIAL As Ordered ONE; -GLYCOPYRROLATE INJ 0.2 MG/ML 2 ML VIAL As Ordered ONE; -KETOROLAC 30 MG/ML VIAL (J1885) As Ordered ONE; -KETOROLAC 30 MG/ML VIAL (J1885) IV PRN; -KETOROLAC 60 MG/2 ML VIAL (J1885) As Ordered ONE; -LIDOCAINE 1% SDV INJ 30 ML VIAL As Ordered ONE; -LIDOCAINE 2% INJ 100 MG/5 ML SDV (FOR ANES.) As Ordered ONE; -LR 1,000 ML IV SCH; -METOCLOPRAMIDE INJ 10MG/2ML VIAL (J2765) IV PRN; -MIDAZOLAM INJ 2 MG/2 ML VIAL (J2250) As Ordered ONE; -MORPHINE 2 MG/ML 1ML SYRINGE IV PRN; -NEOSTIGMINE 1MG/ML 5 ML SYRINGE (J2710) As Ordered ONE; -NORCO, ANEXSIA 5/325MG TABLET (HYDROcodone/ACETAMINOPHEN) PO PRN; -ONDANSETRON 4MG/2ML VIAL (J2405) As Ordered ONE; -ONDANSETRON 4MG/2ML VIAL (J2405) IV PRN; -PERCOCET 5MG/325MG TAB PO PRN; -PROPOFOL 200 MG/20 ML VIAL As Ordered ONE; -ROCURONIUM BROMIDE 50 MG/5 ML VIAL As Ordered ONE; -dexameTHASONE 4 MG/ML 1ML VIAL (J1100) As Ordered ONE; -fentaNYL 250 MCG/5 ML INJECTION (J3010) As Ordered ONE
[2016-09-21] MEDS ORDERED: trazadone PO (15:54)
[2016-09-21] MEDS ORDERED: PRAZ5CAP PO (15:54)
[2016-09-21 16:37] LABS: MEAN CORPUSCULAR HEMOGLOBIN 32.5 pg (27.0-33.0); MEAN CORPUSCULAR HGB CONC 35.6 g/dl (32.0-36.5); MEAN CORPUSCULAR VOLUME 91.3 fl (80.0-96.0); RED CELL DISTRIBUTION WIDTH 12.4 % (11.5-14.5); WHITE BLOOD COUNT 6.9 K/mm3 (4.0-10.0)
[2016-09-21 17:00] LABS: METHADONE URINE NEGATIVE (NEGATIVE)
[2016-09-21 17:04] LABS: ALBUMIN 4.2 GM/DL (3.2-5.2); ALBUMIN/GLOBULIN RATIO 1.31 (1.00-1.93); ALKALINE PHOSPHATASE 83 U/L (45-117); ALT/SGPT 36 U/L (12-78); ANION GAP 4 MEQ/L (8-16); AST/SGOT 19 U/L (15-37); BILIRUBIN,DIRECT 0.1 MG/DL (0.0-0.2); BILIRUBIN,TOTAL 0.5 MG/DL (0.2-1.0); BLOOD UREA NITROGEN 12 MG/DL (7-18); CALCIUM LEVEL 9.1 MG/DL (8.5-10.1); CARBON DIOXIDE LEVEL 31 MEQ/L (21-32); CHLORIDE LEVEL 105 MEQ/L (98-107); CREATININE FOR GFR 1.02 MG/DL (0.70-1.30); GLOMERULAR FILTRATION RATE > 60.0 (>60); GLUCOSE, FASTING 81 MG/DL (70-105); POTASSIUM SERUM 3.9 MEQ/L (3.5-5.1); SODIUM LEVEL 140 MEQ/L (136-145); TOTAL PROTEIN 7.4 GM/DL (6.4-8.2)
[2016-09-21] MEDS ORDERED: PRAZ1CAP PO (17:26)
[2016-09-21] MEDS ORDERED: GLUCTAB6 PO (17:26)
[2016-09-21] MEDS ORDERED: EFFE150C PO (17:26)
[2016-09-21] MEDS ORDERED: TRAZ100T4 PO (17:26)
[2016-09-21] MEDS ORDERED: FLUT11IN INH (17:26)
[2016-09-21] MEDS ORDERED: VITMTA PO (17:26)
[2016-09-21 21:23] VITALS: BP 132/73
[2016-09-21] MEDS ORDERED: ALBUTEROL 90 MCG/ACT 8GM HFA INHALER INH PRN (22:00)
[2016-09-21] MEDS ORDERED: MAALOX 30 ML SUSP *UDC PO PRN (22:30)
[2016-09-21] MEDS ORDERED: MOM 30ML SUSPENSION UDC PO PRN (22:30)
[2016-09-21] MEDS: FLUTICASONE HFA 110 MCG 12 GM INHALER (FLOVENT) INH SCH (23:42)
[2016-09-21] MEDS: PRAZOSIN 1 MG CAP PO SCH (23:42)
[2016-09-21] MEDS: traZODone 100 MG TAB PO PRN (23:42)
[2016-09-21] MEDS: NICOTINE 21MG/24HR 1 EA TRANSDERMAL TD SCH (23:43)
[2016-09-22 06:01] VITALS: BP 137/76
--- NOTE | 2016-09-22 08:07 | HPE ---
DATE OF ADMISSION: 09/21/2016 HISTORY OF THE PRESENT ILLNESS: Please refer to psychiatric history and evaluation for further details on this admission. This examination and history is intended for medical issues which may need treatment, followup or consult on this 20-year-old male. ALLERGIES: No known allergies. PRIMARY CARE PROVIDER: [facility]. SOCIAL HISTORY: He is a single soldier, currently stationed at [employer]. Ethyl alcohol (ETOH): None. Smokes: Anywhere from a half to a whole pack of cigarettes per day, depending on how stressed he is. Recreational drug use: None. PAST MEDICAL HISTORY: 1. Asthma. He follows with [facility]. 2. Post-traumatic stress disorder (PTSD). PAST SURGICAL HISTORY: Bilateral inguinal hernia repair, 08/10/2016. HOME MEDICATIONS: - multivitamin one by mouth daily - prazosin 6 mg by mouth nightly - trazodone 100 mg by mouth nightly - Effexor XR 150 mg by mouth daily - glucosamine chondroitin one by mouth daily - albuterol two puffs four times a day by mouth as needed for shortness of breath or wheeze - Zyrtec 10 mg by mouth daily - Flovent HFA 110 mcg two puffs by mouth twice a day REVIEW OF SYSTEMS: Ten systems review was done, was unremarkable. The patient had no complaints. PHYSICAL EXAMINATION: A 20-year-old cooperative male in no acute distress. Height 73 inches, weight 91.6 kg, body mass index (BMI) 26.6. The patient is alert and oriented times three. Pupils are equal and reactive to light. Extraocular movements intact. Cornea and sclerae clear. Conjunctivae is normal. No facial asymmetry. Pharynx: Tongue and gums pink and moist. Tongue is midline. Neck is supple without lymphadenopathy. No thyromegaly. No goiter. Chest is clear to auscultation without wheeze or retractions. Heart is regular. Abdomen benign. Bowel sounds are positive. Genitalia/Rectal: Not done. Extremities show equal strength, full range of motion. No cyanosis, clubbing or edema. Peripheral pulses equal and palpable bilaterally. Skin is warm and dry. IMPRESSION AND PLAN: Psychiatric plan per psychiatry. History of asthma. Continue Flovent, albuterol and cetirizine. Continued followup as an outpatient with [facility]. Smoking cessation. Nicotine patch available. No other acute medical issues.
[2016-09-22] MEDS: FLUTICASONE HFA 110 MCG 12 GM INHALER (FLOVENT) INH SCH ×2 (08:58→22:03)
[2016-09-22] MEDS: CETIRIZINE (ZyrTEC) 10 MG TAB PO SCH (08:59)
[2016-09-22] MEDS: MULTIVITAMINS/MINERALS THERAP 1 TAB PO SCH (08:59)
[2016-09-22] MEDS: VENLAFAXINE **XR** 75MG CAPSULE PO SCH (08:59)
[2016-09-22 11:54] VITALS: BP 130/58
[2016-09-22 18:00] VITALS: BP_SYST 119; BP_SYST 122; BP_DIAS 59; BP_DIAS 60
[2016-09-22] MEDS: PRAZOSIN 1 MG CAP PO SCH (22:02)
[2016-09-22] MEDS: traZODone 100 MG TAB PO PRN (22:02)
[2016-09-22] MEDS: NICOTINE 21MG/24HR 1 EA TRANSDERMAL TD SCH (22:04)
[2016-09-23 06:27] VITALS: BP 104/56
[2016-09-23] MEDS: VENLAFAXINE **XR** 75MG CAPSULE PO SCH (08:35)
[2016-09-23] MEDS: MULTIVITAMINS/MINERALS THERAP 1 TAB PO SCH (08:35)
[2016-09-23] MEDS: CETIRIZINE (ZyrTEC) 10 MG TAB PO SCH (08:35)
[2016-09-23] MEDS: FLUTICASONE HFA 110 MCG 12 GM INHALER (FLOVENT) INH SCH ×2 (08:35→21:17)
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
[2016-09-23] MEDS ORDERED: FLUoxetine 10 MG CAP PO ONE (13:30)
[2016-09-23 18:00] VITALS: BP 130/60
[2016-09-23] MEDS: NICOTINE 21MG/24HR 1 EA TRANSDERMAL TD SCH (21:17)
[2016-09-23] MEDS: PRAZOSIN 1 MG CAP PO SCH (21:17)
--- NOTE | 2016-09-23 21:20 | IPN ---
DATE: 09/23/2016 CHIEF COMPLAINT: Feels depressed. SUBJECTIVE: He is seen for followup in the presence of staff. Says had a better night, in that he slept better, and does not think that he had nightmares. Has felt quite anxious at times during the day today, and on one occasion he felt as if he was going to get a panic attack, says went to the shower, was there for about half an hour, and felt better. Appetite has been fair. MENTAL STATUS EXAMINATION: He is neat, he is cooperative, less guarded, he is coherent. No agitation, mild psychomotor retardation. Affect is restricted in range. Has suicidal thoughts, no firm plans for now. No homicidal ideas or intents. No evidence of any psychosis at present. Judgment and insight remain compromised. ASSESSMENT: Posttraumatic stress disorder. Major depressive disorder. PLAN: Remains ill enough, and concerns us enough, that he needs to remain on a one-on-one observation period. We will cross-taper Prozac with Effexor, the Effexor will be decreased to 112.5 mg tomorrow, the Prozac will go up to 20 mg daily. I would suggest that he consider using hydroxyzine at 25 mg every 4 hours as needed for agitation, it may help with the periods of excessive anxiety, in the short-term. He is encouraged to participate in activities in the unit. We also spoke of differences between short-term inpatient, long-term inpatient, and outpatient care. This is in response to questions that he had about them. He will be seeing the psychiatrist he is assigned to tomorrow, and the rest of the treatment team. VITAL SIGNS: Blood pressure 104/56, pulse 68, temperature 98.5.
[2016-09-24 07:00] VITALS: BP 126/57
[2016-09-24] MEDS: FLUoxetine 20 MG CAP PO SCH (08:57)
[2016-09-24] MEDS: MULTIVITAMINS/MINERALS THERAP 1 TAB PO SCH (08:57)
[2016-09-24] MEDS: CETIRIZINE (ZyrTEC) 10 MG TAB PO SCH (08:57)
[2016-09-24] MEDS: FLUTICASONE HFA 110 MCG 12 GM INHALER (FLOVENT) INH SCH ×2 (08:57→20:30)
[2016-09-24] MEDS: VENLAFAXINE **XR** 75MG CAPSULE PO SCH (08:57)
[2016-09-24] MEDS ORDERED: VENLAFAXINE **XR** 37.5 MG CAPSULE PO ONE (09:00)
[2016-09-24 18:00] VITALS: BP 140/61
--- NOTE | 2016-09-24 18:06 | MHIPNPDOC ---
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 He described that he was still having intrusive thoughts as well as constant hypervigilance and anxiety especially around people. He describes a supportive environment does make him feel better but that he feels at times that he could be a danger to himself as an outpatient as he feels as though he has great tendencies to isolate when he is at home. He feels as though he would not be a danger here and is able to contract for safety if he were to feel such a way. VITAL SIGNS: See below. NEW TEST RESULTS: See below CURRENT MEDICATIONS: See below. MENTAL STATUS EXAMINATION: General: Well dressed with good hygiene Speech: Spontaneous and fluid Thought processes: Linear and logical Thought content: Perseverates on over generalize thoughts Abstract reasoning, and computation: Intact Description of associations: Intact Description of abnormal or psychotic thoughts:Denies any suicidal or homicidal ideation. Denies any auditory or visual hallucinations. Does not appear to be responding to internal stimuli. Does not appear to be endorsing any bizarre or paranoid ideation. Judgment: Fair Insight: Poor Orientation: Alert and orientated 3 Recent and remote memory: Intact Attention span and concentration: Intact Fund of knowledge: Adequate Mood: "Fine" Affect: Anxious and dysphoric DIAGNOSES: 1. PTSD, acute. ASSESSMENT: 20-year-old man with severe active PTSD who is been refractory to stand her treatment is being cross titrated from venlafaxine to Prozac with good effects. The prazosin does not appear to be able to cover meal night to prevent nightmares from awaking the patient disrupting his sleep schedule. He is open to trying a longer acting version of Minipress that could allow him more effect MANAGEMENT PLAN: Medications: Switch patient to doxazosin 1 mg daily at bedtime to titrate up to good effect. The patient's on 6 mg of prazosin however rebound hypertension is unlikely given that his dosing is daily at bedtime and the half-life of prazosin his relatively short period the dose can be titrated up to full affect , although much more tenuously them Minipress due to postural hypotension. Continue Prozac and venlafaxine cross-taper will not make changes today. Psychotherapy: Encourage group attendance Social: Social work to begin discharge planning Misc: One-to-one sitter to be discontinued the patient is able to safety contract at this time Disposition: The patient will need of further inpatient stay to address severe acute PTSD symptoms as well as intermittent suicidal thoughts. TIME SPENT: 35 minutes. Vital Signs Vital Signs Date Time Temp Pulse Resp B/P (MAP) Pulse Ox O2 Delivery O2 Flow Rate FiO2 09/24/16 07:00 97.8 85 18 126/57 (80) 09/22/16 06:01 Room Air 09/21/16 20:52 96 Current Medications Current Medications Acetaminophen (Tylenol Tab) 650 mg Q6HP PRN PO HEADACHE or DISCOMFORT; Start at 22:30; Stop 10/21/16 at 22:29 Al Hydrox/Mg Hydrox/Simethicone (Mylanta) 30 ml Q4HP PRN PO HEARTBURN/ INDIGESTION; Start 09/21/16 at 22:30; Stop 10/21/16 at 22:29 Albuterol Sulfate (Proventil, Ventolin Hfa) 2 puff QIDP PRN INH SHORTNESS OF BREATH; Start 09/21/16 at 22:00; Stop 10/21/16 at 21:59 Cetirizine HCl (ZyrTEC) 10 mg DAILY PO Last administered on 09/24/16 08:57; Start 09/22/16 at 09:00; Stop 10/22/16 at 08:59 Fluoxetine HCl (PROzac) 20 mg DAILY PO Last administered on 09/24/16 08:57; Start 09/24/16 at 09:00; Stop 10/24/16 at 08:59 Fluticasone Propionate (Flovent Hfa 110 Mcg) 2 puff BID INH Last administered on 09/24/16 08:57; Start 09/21/16 at 21:00; Stop 10/21/16 at 20:59 Home Med (Med Rec Complete!) ASDIRECTED XX ; Start 09/21/16 at 17:30; Stop at 17:30; Status DC Magnesium Hydroxide (Milk Of Magnesia) 30 ml DAILYPRN PRN PO CONSTIPATION; Start 09/21/16 at 22:30; Stop 10/21/16 at 22:29 Multivitamins (Theragram-M) 1 tab DAILY PO Last administered on 09/24/16 08:57 ; Start 09/22/16 at 09:00; Stop 10/22/16 at 08:59 Nicotine (Nicoderm Cq 21mg) 1 patch QHS TD Last administered on 09/23/16 21:17 ; Start 09/21/16 at 21:00; Stop 10/21/16 at 20:59 Prazosin HCl (Minipress) 6 mg QHS PO Last administered on 09/23/16 21:17; Start 09/21/16 at 21:00; Stop 10/21/16 at 20:59 Trazodone HCl (Desyrel) 100 mg QHSP PRN PO INSOMNIA Last administered on 22:02; Start 09/21/16 at 22:30; Stop 10/21/16 at 22:29 Venlafaxine HCl (Effexor Xr) 75 mg DAILY PO Last administered on 09/24/16 08:57; Start 09/24/16 at 09:00; Stop 10/24/16 at 08:59 Venlafaxine HCl (Effexor Xr) 150 mg DAILY PO Last administered on 09/23/16 08:35; Start 09/22/16 at 09:00; Stop 09/23/16 at 16:11; Status DC Allergies Coded Allergies: No Known Allergies (Unverified , 08/09/16) GME ATTESTATION My preceptor for this patient encounter was physically present in the building during the encounter and was fully available. As needed, all aspects of the patient interview, examination, medical decision making process, and medical care plan development were reviewed and approved by the preceptor. Preceptor is aware and concurs with the plan as stated in the body of this note and will attest to such by his/her cosignature. VALENTÍN HERNÁNDEZ DO September 24, 2016 18:06
[2016-09-24] MEDS: NICOTINE 21MG/24HR 1 EA TRANSDERMAL TD SCH (20:30)
[2016-09-24] MEDS: DOXAZOSIN MESYLATE 1 MG TAB PO SCH (20:31)
[2016-09-24] MEDS: ACETAMINOPHEN TAB 650MG DOSE (2X325MG) PO PRN (22:58)
[2016-09-25 06:22] VITALS: BP 115/62
[2016-09-25] MEDS: FLUoxetine 20 MG CAP PO SCH (08:56)
[2016-09-25] MEDS: VENLAFAXINE **XR** 75MG CAPSULE PO SCH (08:56)
[2016-09-25] MEDS: MULTIVITAMINS/MINERALS THERAP 1 TAB PO SCH (08:56)
[2016-09-25] MEDS: CETIRIZINE (ZyrTEC) 10 MG TAB PO SCH (08:56)
[2016-09-25] MEDS: FLUTICASONE HFA 110 MCG 12 GM INHALER (FLOVENT) INH SCH ×2 (08:56→20:56)
--- NOTE | 2016-09-25 11:28 | MHIPNPDOC ---
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 Patient indicates he has not been feeling well psychiatrically since his return from [facility] last year, also has a history of heavy alcohol consumption, notes he purchased related in [place] and stop drinking heavily last March, continues to drink occasionally. Patient is being seen the first time today by this provider, has been seen by other providers since his admission to the hospital, changes to medications have been initiated by previous providers. Patient rates current anxiety level of 8/10, depression 9/10, denies current suicidal or homicidal ideation but informs assembly instructions writer he does not feel he will be able to keep himself safe were he to return to [place] at this time. Patient denies urge to engage in self-injurious behavior and denies auditory or visual hallucinations, however, indicates at night he sometimes reexperiences "sounds of explosions and screams" related to deployment. Patient states he no longer wants to take trazodone for sleep as he feels it is increasing his anxiety, is requesting change in sleep aid. Patient remains in agreement with taper of Effexor XR, notes he feels "better" since beginning Prozac a day ago. Patient indicates appetite is stable, reports challenges with concentration and focus, reduced energy level, notes sleep remains difficult related to nightmares symptoms. Patient denies physical pain and presents with no signs of acute distress at time of interaction. VITAL SIGNS: See below. NEW TEST RESULTS: See below. Labs on admission indicated low anion gap. Patient has a history of asthma and bilateral lateral inguinal hernia repair. UDS negative on admission EKG pending CURRENT MEDICATIONS: See below. MENTAL STATUS EXAMINATION: Patient is 20-year-old active duty [employer] who is pleasant and cooperative, exhibits good personal hygiene, makes fair eye contact, is dressed in hospital clothing, ambulates with steady gait, appears stated age Speech: Spontaneous and fluid, of normal rate, rhythm, volume Thought processes: Linear and logical Thought content: Perseverates on reexperiencing symptoms, otherwise rational, logical, no paranoia noted Abstract reasoning, and computation: Intact Description of associations: Intact Description of abnormal or psychotic thoughts: Denies any suicidal or homicidal ideation. Denies any auditory or visual hallucinations. Does not appear to be responding to internal stimuli. Does not appear to be endorsing any bizarre or paranoid ideation, denies preoccupation with violence Judgment: Fair Insight: Poor Orientation: Alert and orientated 3 Recent and remote memory: Intact Attention span and concentration: Intact Fund of knowledge: Adequate Mood: "Fine, ok." Affect: Blunted DIAGNOSES: Unspecified depressive disorder, rule out adjustment disorder, rule out MDD, rule out PTSD ASSESSMENT: Patient is 20-year-old male with depression and what may be PTSD- type symptoms who has been visible on unit, attending groups, and engaging with peers. Patient is in agreement with continuing Effexor XR/Prozac cross titration , indicates Prozac is helpful and denies medication side effects. Patient indicates prazosin changed to Cardura is somewhat helpful, denies need for dosing adjustment at this time. Patient is also requesting change to sleep aid and is requesting that trazodone be discontinued. Patient denies suicidal and homicidal ideation and verbalizes awareness of how to access supportive services on the unit if needed. Will monitor patient's response to medications and monitor for side effects, will evaluate patient's safety, resolution of suicidal ideation, and discharge readiness. Patient states when prepared for discharge she plans to return to [facility], is aware recommendations will be made for IOP and [place] program participation. MANAGEMENT PLAN: Reduce Effexor XR to 37.5 mg po q am with plan to discontinue. Discontinue trazodone. Initiate med trial hydroxyzine 50 mg po hs PRN insomnia, may repeat 1 after 60 minutes. Continue Cardura 1 mg po hs with plan to titrate as needed/tolerated by patient. Continue Prozac 20 mg po q am. Orthostatics ordered QID Maintain safety precautions Patient to attend groups and participate in unit programming to develop coping strategies Engage patient in discharge planning process and arrange meeting with command to ensure safe discharge planning when appropriate Patient to follow up with [facility] upon discharge TIME SPENT: 35 minutes. Vital Signs Vital Signs Date Time Temp Pulse Resp B/P (MAP) Pulse Ox O2 Delivery O2 Flow Rate FiO2 09/25/16 06:22 98.2 71 16 115/62 (79) 5/6/17 06:01 Room Air 09/21/16 20:52 96 Current Medications Current Medications Acetaminophen (Tylenol Tab) 650 mg Q6HP PRN PO HEADACHE or DISCOMFORT Last administered on 09/24/16 22:58; Start 09/21/16 at 22:30; Stop 10/21/16 at 22:29 Al Hydrox/Mg Hydrox/Simethicone (Mylanta) 30 ml Q4HP PRN PO HEARTBURN/ INDIGESTION; Start 09/21/16 at 22:30; Stop 10/21/16 at 22:29 Albuterol Sulfate (Proventil, Ventolin Hfa) 2 puff QIDP PRN INH SHORTNESS OF BREATH; Start 09/21/16 at 22:00; Stop 10/21/16 at 21:59 Cetirizine HCl (ZyrTEC) 10 mg DAILY PO Last administered on 09/25/16 08:56; Start 09/22/16 at 09:00; Stop 10/22/16 at 08:59 Doxazosin Mesylate (Cardura) 1 mg QHS PO Last administered on 09/24/16 20:31; Start 09/24/16 at 21:00; Stop 10/24/16 at 20:59 Fluoxetine HCl (PROzac) 20 mg DAILY PO Last administered on 09/25/16 08:56; Start 09/24/16 at 09:00; Stop 10/24/16 at 08:59 Fluticasone Propionate (Flovent Hfa 110 Mcg) 2 puff BID INH Last administered on 09/25/16 08:56; Start 09/21/16 at 21:00; Stop 10/21/16 at 20:59 Home Med (Med Rec Complete!) ASDIRECTED XX ; Start 09/21/16 at 17:30; Stop at 17:30; Status DC Magnesium Hydroxide (Milk Of Magnesia) 30 ml DAILYPRN PRN PO CONSTIPATION; Start 09/21/16 at 22:30; Stop 10/21/16 at 22:29 Multivitamins (Theragram-M) 1 tab DAILY PO Last administered on 09/25/16 08:56 ; Start 09/22/16 at 09:00; Stop 10/22/16 at 08:59 Nicotine (Nicoderm Cq 21mg) 1 patch QHS TD Last administered on 09/24/16 20:30 ; Start 09/21/16 at 21:00; Stop 10/21/16 at 20:59 Prazosin HCl (Minipress) 6 mg QHS PO Last administered on 09/23/16 21:17; Start 09/21/16 at 21:00; Stop 09/24/16 at 18:04; Status DC Trazodone HCl (Desyrel) 100 mg QHSP PRN PO INSOMNIA Last administered on 22:02; Start 09/21/16 at 22:30; Stop 10/21/16 at 22:29 Venlafaxine HCl (Effexor Xr) 75 mg DAILY PO Last administered on 09/25/16 08:56; Start 09/24/16 at 09:00; Stop 10/24/16 at 08:59 Venlafaxine HCl (Effexor Xr) 150 mg DAILY PO Last administered on 09/23/16 08:35; Start 09/22/16 at 09:00; Stop 09/23/16 at 16:11; Status DC Allergies Coded Allergies: No Known Allergies (Unverified , 08/09/16) Judy Mei September 25, 2016 11:28
[2016-09-25] MEDS: ACETAMINOPHEN TAB 650MG DOSE (2X325MG) PO PRN (12:56)
[2016-09-25 18:34] VITALS: BP 129/62
--- NOTE | 2016-09-25 19:12 | ECGEPIP ---
Stationary ECG Study [facility] Test Date: 2016-09-25 Pat Name: KARIE MARTINEZ Department: Room: [place] [address] Gender: M Quality Systems Manager: TIMMY : 1995 Requested By: Judy Mei Order Number: [id number] Reading MD: Charanjit Rice Measurements Intervals [place] Rate: 53 P: 51 VT: 170 QRS: 69 QRSD: 98 T: 41 QT: 402 QTc: 378 Interpretive Statements SINUS BRADYCARDIA NO PRIOR Electronically Signed On 09-25-2016 19:12:34 EDT by Charanjit Rice
[2016-09-25] MEDS: DOXAZOSIN MESYLATE 1 MG TAB PO SCH (20:55)
[2016-09-25] MEDS: NICOTINE 21MG/24HR 1 EA TRANSDERMAL TD SCH (20:56)
[2016-09-25] MEDS: hydrOXYzine 50 MG TAB PO PRN ×2 (21:06→22:09)
[2016-09-26 06:53] VITALS: BP 107/60
[2016-09-26] MEDS ORDERED: VENLAFAXINE **XR** 37.5 MG CAPSULE PO SCH (09:00)
[2016-09-26] MEDS: MULTIVITAMINS/MINERALS THERAP 1 TAB PO SCH (09:07)
[2016-09-26] MEDS: CETIRIZINE (ZyrTEC) 10 MG TAB PO SCH (09:07)
[2016-09-26] MEDS: FLUoxetine 20 MG CAP PO SCH (09:07)
[2016-09-26] MEDS: FLUTICASONE HFA 110 MCG 12 GM INHALER (FLOVENT) INH SCH ×2 (09:08→21:32)
--- NOTE | 2016-09-26 10:42 | MHIPNPDOC ---
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 Patient indicates he has not been feeling well psychiatrically since his return from [facility] year, also has a history of heavy alcohol consumption, notes he participated in [place] and stopped drinking heavily last March, continues to drink occasionally. Patient was seen for the first time yesterday by this provider, has been seen by other providers since his admission to the hospital who initiated changes to medications. Patient rates current anxiety level of 10/27, depression /, denies current suicidal or homicidal ideation but reiterates today he does not feel he will be able to keep himself safe were he to return to [place] at this time, indicates he feels he needs to participate in long-term care program in [place], then return to participate in [facility]. Patient denies urge to engage in self- injurious behavior and denies auditory or visual hallucinations, however, reiterates today he continues to experience "screaming and booms" at night which he attributes to deployment history. Patient trialed hydroxyzine last night for sleep and indicates medication worked "very well," notes he experienced symptoms of dizziness upon waking this am which he attributes to hydroxyzine. Patient feels Cardura continues to help reduce symptoms of nightmares, denies need for dosing adjustments. Patient states his sleep was "a lot better" last night and, per EMR, patient slept throughout the night, notes he continues to experience nightmares but indicates they are reduced in frequency and intensity, denies need for dosing adjustment to Cardura. Patient has now completed Effexor XR taper, notes he feels Prozac continues to be helpful in reducing symptoms of anxiety. Patient denies additional medication side effects, notes dizziness was temporary and manageable, is requesting to continue medication. Patient indicates appetite is stable, reports ongoing challenges with concentration and focus, reduced energy level. Patient denies physical pain and presents with no signs of acute distress at time of interaction. VITAL SIGNS: See below. NEW TEST RESULTS: See below. Labs on admission indicated low anion gap. Patient has a history of asthma and bilateral lateral inguinal hernia repair. UDS negative on admission 09/25/16 EKG SINUS BRADYCARDIA NO PRIOR CURRENT MEDICATIONS: See below. 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 Denies any auditory or visual hallucinations. Does not appear to be responding to internal stimuli. Does not appear to be endorsing any bizarre or paranoid ideation, denies preoccupation with violence Judgment: Fair Insight: Limited Orientation: Alert and orientated 3 Recent and remote memory: Intact Attention span and concentration: Intact Fund of knowledge: Adequate Mood: "Fine, ok while I'm here, I worry about when I go back to [place]." Patient appears depressed and anxious, no mood lability noted Affect: Blunted, generally congruent with mood DIAGNOSES: Unspecified depressive disorder, rule out adjustment disorder, rule out MDD, rule out PTSD ASSESSMENT: Patient appears to be adjusting to unit, is visible, socializes with select peers, and is participating in unit programming. Patient remains in agreement with discontinuation of Effexor XR and continuation of Prozac in effort to address symptoms of anxiety and depression, notes Prozac remains helpful for controlling symptoms at this time. Patient reports initiation of hydroxyzine for sleep is effective and expresses desire to continue medication. Patient indicates current medication regimen is helpful, is agreeable to trialing hydroxyzine at reduced dose in effort to address symptoms of dizziness. Patient and check writer spoke at length today regarding discharge planning, patient indicates he feels he needs to go to long-term care in [place], does not feel that [facility] program will be intensive enough and will allow him "too much down time to sit around and think about things." Patient denies suicidal and homicidal ideation and verbalizes awareness of how to access supportive services on the unit if needed. Will continue to monitor patient's response to medications and monitor for side effects, will also continue to evaluate patient 's safety, resolution of suicidal ideation, and discharge readiness. Patient is aware that discharge plan is currently to return to [place] to participate in outpatient behavioral health services and that [facility] will indicate if they feel patient transfer to long-term care in [place] is appropriate. Patient is aware that recommendations for IOP and [facility] program participation will also be made at time of discharge patient does not go to long-term care. MANAGEMENT PLAN: Discontinue Effexor 37.5 mg po q am. Reduce hydroxyzine to 25 mg po hs PRN insomnia, may repeat 1 after 60 minutes, continue cardura 1 mg po hs with plan to titrate as needed/tolerated by patient, and continue Prozac 20 mg po q am. Orthostatics ordered QID Maintain safety precautions Patient to attend groups and participate in unit programming to develop coping strategies Engage patient in discharge planning process and arrange meeting with command to ensure safe discharge planning when appropriate Patient to follow up with [facility] upon discharge TIME SPENT: 35 minutes. Vital Signs Vital Signs Date Time Temp Pulse Resp B/P (MAP) Pulse Ox O2 Delivery O2 Flow Rate FiO2 09/26/16 06:53 97.5 73 18 107/60 (76) 09/22/16 06:01 Room Air 09/21/16 20:52 96 Current Medications Current Medications Acetaminophen (Tylenol Tab) 650 mg Q6HP PRN PO HEADACHE or DISCOMFORT Last administered on 09/25/16 12:56; Start 09/21/16 at 22:30; Stop 10/21/16 at 22:29 Al Hydrox/Mg Hydrox/Simethicone (Mylanta) 30 ml Q4HP PRN PO HEARTBURN/ INDIGESTION; Start 09/21/16 at 22:30; Stop 10/21/16 at 22:29 Albuterol Sulfate (Proventil, Ventolin Hfa) 2 puff QIDP PRN INH SHORTNESS OF BREATH; Start 09/21/16 at 22:00; Stop 10/21/16 at 21:59 Cetirizine HCl (ZyrTEC) 10 mg DAILY PO Last administered on 09/26/16 09:07; Start 09/22/16 at 09:00; Stop 10/22/16 at 08:59 Doxazosin Mesylate (Cardura) 1 mg QHS PO Last administered on 09/25/16 20:55; Start 09/24/16 at 21:00; Stop 10/24/16 at 20:59 Fluoxetine HCl (PROzac) 20 mg DAILY PO Last administered on 09/26/16 09:07; Start 09/24/16 at 09:00; Stop 10/24/16 at 08:59 Fluticasone Propionate (Flovent Hfa 110 Mcg) 2 puff BID INH Last administered on 09/26/16 09:08; Start 09/21/16 at 21:00; Stop 10/21/16 at 20:59 Home Med (Med Rec Complete!) ASDIRECTED XX ; Start 09/21/16 at 17:30; Stop at 17:30; Status DC Hydroxyzine HCl (Atarax) 50 mg QHS PRN PO INSOMNIA Last administered on 22:09; Start 09/25/16 at 20:15; Stop 10/25/16 at 20:14 Magnesium Hydroxide (Milk Of Magnesia) 30 ml DAILYPRN PRN PO CONSTIPATION; Start 09/21/16 at 22:30; Stop 10/21/16 at 22:29 Multivitamins (Theragram-M) 1 tab DAILY PO Last administered on 09/26/16 09:07 ; Start 09/22/16 at 09:00; Stop 10/22/16 at 08:59 Nicotine (Nicoderm Cq 21mg) 1 patch QHS TD Last administered on 09/25/16 20:56 ; Start 09/21/16 at 21:00; Stop 10/21/16 at 20:59 Prazosin HCl (Minipress) 6 mg QHS PO Last administered on 09/23/16 21:17; Start 09/21/16 at 21:00; Stop 09/24/16 at 18:04; Status DC Trazodone HCl (Desyrel) 100 mg QHSP PRN PO INSOMNIA Last administered on 22:02; Start 09/21/16 at 22:30; Stop 09/25/16 at 20:08; Status DC Venlafaxine HCl (Effexor Xr) 37.5 mg DAILY PO Last administered on 09:07; Start 09/26/16 at 09:00; Stop 09/26/16 at 10:00; Status DC Venlafaxine HCl (Effexor Xr) 75 mg DAILY PO Last administered on 09/25/16 08:56; Start 09/24/16 at 09:00; Stop 09/25/16 at 20:24; Status DC Venlafaxine HCl (Effexor Xr) 150 mg DAILY PO Last administered on 09/23/16 08:35; Start 09/22/16 at 09:00; Stop 09/23/16 at 16:11; Status DC Allergies Coded Allergies: No Known Allergies (Unverified , 08/09/16) Judy Mei September 26, 2016 10:42
[2016-09-26 13:17] VITALS: BP 140/59
[2016-09-26 13:18] VITALS: BP 134/60
[2016-09-26] MEDS ORDERED: hydrOXYzine 25 MG TAB PO PRN (13:45)
[2016-09-26 18:00] VITALS: BP_SYST 110; BP_SYST 119; BP_SYST 120; BP_DIAS 55; BP_DIAS 57; BP_DIAS 68
[2016-09-26 21:00] VITALS: BP 106/54
[2016-09-26] MEDS: DOXAZOSIN MESYLATE 1 MG TAB PO SCH (21:00)
[2016-09-26] MEDS: NICOTINE 21MG/24HR 1 EA TRANSDERMAL TD SCH (21:31)
[2016-09-27 06:31] VITALS: BP_SYST 124; BP_SYST 126; BP_SYST 128; BP_DIAS 59
--- NOTE | 2016-09-27 08:54 | MHIPNPDOC ---
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 Patient indicates he has not been feeling well psychiatrically since his return from [facility] last year, also has a history of heavy alcohol consumption, notes he participated in [place] and stopped drinking heavily last March, continues to drink occasionally. Patient was seen for the first time yesterday by this provider, has been seen by other providers since his admission to the hospital who initiated changes to medications. Patient indicates he was experiencing symptoms of dizziness last night which have improved this morning, Cardura was held last night due to drop in blood pressure and patient indicates hydroxyzine was ineffective for sleep last night. Contrary to EMR which indicates patient slept 7 hours, patient states he did not sleep well, states he tossed and turned throughout the night with frequent awakenings, reports recurring nightmares pertaining to deployment experiences. Patient rates 9/10 anxiety, 9/10 depression, denies homicidal ideation, denies auditory or visual hallucinations, denies urge to engage in self-injurious behavior. With regard to suicidal ideation patient states, "I'm not suicidal while I'm here, but if I was at [facility] I would be, there is no doubt about it." Patient indicates he feels he requires long-term care in order to address reported symptoms of PTSD. Patient notes he thinks he will "feel better" after meeting with command and having a better understanding of what his treatment future will entail. Patient states he feels Prozac is helping to improve mood and reduce symptoms of anxiety, is today requesting new sleep aid trial. Patient reports decreased energy, stable appetite, and denies challenges with concentration and focus. Patient has completed Effexor XR taper. Patient denies physical pain and presents with no signs of acute distress at time of interaction. VITAL SIGNS: See below. NEW TEST RESULTS: See below. Labs on admission indicated low anion gap. Patient has a history of asthma and bilateral lateral inguinal hernia repair. UDS negative on admission 09/25/16 EKG SINUS BRADYCARDIA NO PRIOR CURRENT MEDICATIONS: See below. 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 Denies any auditory or visual hallucinations. Does not appear to be responding to internal stimuli. Does not appear to be endorsing any bizarre or paranoid ideation, denies preoccupation with violence Judgment: Fair Insight: Limited Orientation: Alert and orientated 3 Recent and remote memory: Intact Attention span and concentration: Intact Fund of knowledge: Adequate Mood: "I'm worried that I'm not going to get better and I don't know what's can happen in the future about my treatment." Patient appears anxious, less depressed, no mood lability noted Affect: Mild constriction, brightens at times DIAGNOSES: Adjustment disorder with mixed anxiety and depressed mood, rule out MDD, rule out PTSD, rule out personality disorder ASSESSMENT: Patient continues to adjust to unit, has been visible, socializes with select peers, and is participating in unit programming. Effexor XR has now been discontinued and patient indicates Prozac is helping to address symptoms of anxiety and depression. Cardura and hydroxyzine will be discontinued due to side effects, patient notes trazodone, Benadryl, and melatonin are ineffective. Patient is agreeable to trialing low-dose Seroquel in effort to address sleep challenges and improve mood. Patient and keno writer / runner spoke at length again today regarding discharge planning, patient indicates he feels he needs to go to long- term care in [place], does not feel that [facility] program will be intensive enough, has indicated he is not sure if he can keep himself safe if discharged [facility] at this time. Patient denies suicidal and homicidal ideation while in hospital and verbalizes awareness of how to access supportive services on the unit if needed. Will continue to monitor patient's response to medications and monitor for side effects, will also continue to evaluate patient's safety, resolution of suicidal ideation, and discharge readiness. Patient is aware that landscape architect and planner is communicating with Darwin Michelle in effort to establish discharge plan. Patient is aware that discharge plan, unless communicated otherwise by Darwin Michelle, is currently to return to [facility] to participate in outpatient behavioral health services and that [facility] will indicate if they feel patient transfer to long-term care in [place] is appropriate. Patient is aware that recommendations for IOP and [facility] program participation will also be made at time of discharge patient does not go to long-term care. MANAGEMENT PLAN: Discontinue hydroxyzine to 25 mg po hs PRN insomnia. Initiate Seroquel 25 mg po hs PRN insomnia, may repeat 1 after 60 minutes. Discontinue cardura 1 mg po hs. Continue Prozac 20 mg po q am. Orthostatics ordered QID Maintain safety precautions Patient to attend groups and participate in unit programming to develop coping strategies Engage patient in discharge planning process and arrange meeting with command to ensure safe discharge planning when appropriate Patient to follow up with Darwin Michelle PCM upon discharge TIME SPENT: 35 minutes. Vital Signs Vital Signs Date Time Temp Pulse Resp B/P (MAP) Pulse Ox O2 Delivery O2 Flow Rate FiO2 09/27/16 06:31 97.8 16 09/27/16 06:31 56 128/59 (82) 64 126/59 (81) 63 124/59 (80) 09/26/16 18:00 Room Air 09/21/16 20:52 96 Current Medications Current Medications Acetaminophen (Tylenol Tab) 650 mg Q6HP PRN PO HEADACHE or DISCOMFORT Last administered on 09/25/16 12:56; Start 09/21/16 at 22:30; Stop 10/21/16 at 22:29 Al Hydrox/Mg Hydrox/Simethicone (Mylanta) 30 ml Q4HP PRN PO HEARTBURN/ INDIGESTION; Start 09/21/16 at 22:30; Stop 10/21/16 at 22:29 Albuterol Sulfate (Proventil, Ventolin Hfa) 2 puff QIDP PRN INH SHORTNESS OF BREATH; Start 09/21/16 at 22:00; Stop 10/21/16 at 21:59 Cetirizine HCl (ZyrTEC) 10 mg DAILY PO Last administered on 09/26/16 09:07; Start 09/22/16 at 09:00; Stop 10/22/16 at 08:59 Doxazosin Mesylate (Cardura) 1 mg QHS PO Last administered on 09/25/16 20:55; Start 09/24/16 at 21:00; Stop 10/24/16 at 20:59 Fluoxetine HCl (PROzac) 20 mg DAILY PO Last administered on 09/26/16 09:07; Start 09/24/16 at 09:00; Stop 10/24/16 at 08:59 Fluticasone Propionate (Flovent Hfa 110 Mcg) 2 puff BID INH Last administered on 09/26/16 21:32; Start 09/21/16 at 21:00; Stop 10/21/16 at 20:59 Home Med (Med Rec Complete!) ASDIRECTED XX ; Start 09/21/16 at 17:30; Stop at 17:30; Status DC Hydroxyzine HCl (Atarax) 25 mg QHS PRN PO INSOMNIA Last administered on 23:25; Start 09/26/16 at 13:45; Stop 10/26/16 at 13:44 Hydroxyzine HCl (Atarax) 50 mg QHS PRN PO INSOMNIA Last administered on 22:09; Start 09/25/16 at 20:15; Stop 09/26/16 at 13:41; Status DC Magnesium Hydroxide (Milk Of Magnesia) 30 ml DAILYPRN PRN PO CONSTIPATION; Start 09/21/16 at 22:30; Stop 10/21/16 at 22:29 Multivitamins (Theragram-M) 1 tab DAILY PO Last administered on 09/26/16 09:07 ; Start 09/22/16 at 09:00; Stop 10/22/16 at 08:59 Nicotine (Nicoderm Cq 21mg) 1 patch QHS TD Last administered on 09/26/16 21:31 ; Start 09/21/16 at 21:00; Stop 10/21/16 at 20:59 Prazosin HCl (Minipress) 6 mg QHS PO Last administered on 09/23/16 21:17; Start 09/21/16 at 21:00; Stop 09/24/16 at 18:04; Status DC Trazodone HCl (Desyrel) 100 mg QHSP PRN PO INSOMNIA Last administered on 22:02; Start 09/21/16 at 22:30; Stop 09/25/16 at 20:08; Status DC Venlafaxine HCl (Effexor Xr) 37.5 mg DAILY PO Last administered on 09:07; Start 09/26/16 at 09:00; Stop 09/26/16 at 10:00; Status DC Venlafaxine HCl (Effexor Xr) 75 mg DAILY PO Last administered on 09/25/16 08:56; Start 09/24/16 at 09:00; Stop 09/25/16 at 20:24; Status DC Venlafaxine HCl (Effexor Xr) 150 mg DAILY PO Last administered on 09/23/16 08:35; Start 09/22/16 at 09:00; Stop 09/23/16 at 16:11; Status DC Allergies Coded Allergies: No Known Allergies (Unverified , 08/09/16) Judy Mei September 27, 2016 08:54
[2016-09-27] MEDS: CETIRIZINE (ZyrTEC) 10 MG TAB PO SCH (09:01)
[2016-09-27] MEDS: FLUTICASONE HFA 110 MCG 12 GM INHALER (FLOVENT) INH SCH ×2 (09:01→21:29)
[2016-09-27] MEDS: FLUoxetine 20 MG CAP PO SCH (09:02)
[2016-09-27] MEDS: MULTIVITAMINS/MINERALS THERAP 1 TAB PO SCH (09:02)
[2016-09-27] MEDS ORDERED: QUEtiapine FUMARATE 25 MG TAB PO PRN (11:45)
[2016-09-27 12:36] VITALS: BP_SYST 120; BP_SYST 122; BP_SYST 127; BP_DIAS 56; BP_DIAS 58; BP_DIAS 69
[2016-09-27 18:00] VITALS: BP_SYST 139; BP_SYST 155; BP_SYST 157; BP_DIAS 63; BP_DIAS 75; BP_DIAS 81
[2016-09-27] MEDS: ACETAMINOPHEN TAB 650MG DOSE (2X325MG) PO PRN (21:30)
[2016-09-27] MEDS: NICOTINE 21MG/24HR 1 EA TRANSDERMAL TD SCH (21:30)
[2016-09-28 06:10] VITALS: BP_SYST 115; BP_SYST 118; BP_SYST 128; BP_DIAS 59; BP_DIAS 62; BP_DIAS 67
[2016-09-28] MEDS: FLUoxetine 20 MG CAP PO SCH (09:06)
[2016-09-28] MEDS: FLUTICASONE HFA 110 MCG 12 GM INHALER (FLOVENT) INH SCH ×2 (09:06→22:07)
[2016-09-28] MEDS: MULTIVITAMINS/MINERALS THERAP 1 TAB PO SCH (09:06)
[2016-09-28] MEDS: CETIRIZINE (ZyrTEC) 10 MG TAB PO SCH (09:06)
--- NOTE | 2016-09-28 09:54 | MHIPNPDOC ---
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 Patient indicates he has not been feeling well psychiatrically since his return from [facility] last year, also has a history of heavy alcohol consumption, notes he participated in [place] and stopped drinking heavily last March, continues to drink occasionally. Patient indicates he slept well for approximately 4 hours last night after taking Seroquel 25 mg, denies nightmares symptoms, is aware he could have taken a repeat dose of medication but elected not to, indicates he reexperienced "blooms and screams" from deployment while lying awake in bed last night after awakening. Patient today makes request for PRN medication to address symptoms of anxiety, informs food writer that symptoms of dizziness previously experienced began with Cardura trial, not hydroxyzine, and would like to trial hydroxyzine PRN anxiety. Patient rates current anxiety level as 10/10, depression 10/10, denies suicidal and homicidal ideation but notes, "I will be suicidal if I go back to [place]." Patient denies auditory and visual hallucinations, and denies urge to engage in self-injurious behavior. Patient reiterates today he feels he requires long-term care, is noticeably irritable due to recently being told he will be sent to [place] instead of [place] for treatment. Patient states to food writer, "I was totally fine before I deployed and I was exposed to a huge medevac. I struggle, it's frustrating, everybody else is getting med boarded who was exposed to that and they don't have half as severe symptoms as I do and I've been struggling for so long; it's not fair. I'm dealing with so much more and they are over exaggerating her symptoms." [employer] Consultant and patient spoke at length today regarding opportunity to receive treatment in [place], patient indicates he does not want to go to [place] because, "I want to be out of uniform and I wanted somewhere more lax to focus on other things." Patient continues to feel Prozac is helping to improve mood and reduce symptoms of anxiety, is today requesting dose increase Seroquel in effort to improve sleep. Patient reports decreased energy, fluctuating appetite, and denies challenges with concentration and focus. Patient has completed Effexor XR taper. Patient denies physical pain and presents with no signs of acute distress at time of interaction. Addendum: Patient requested and received hydroxyzine 50 mg po at 11:51 for symptoms of anxiety, food writer followed up with patient at 18:00 who indicated medication was effective and he denied all side effects including dizziness. Patient is requesting to continue to have hydroxyzine available to him to address symptoms of anxiety as needed, was instructed to alert nursing immediately if he experiences any side effects. VITAL SIGNS: See below. NEW TEST RESULTS: See below. Labs on admission indicated low anion gap. Patient has a history of asthma and bilateral lateral inguinal hernia repair. UDS negative on admission 09/25/16 EKG SINUS BRADYCARDIA NO PRIOR CURRENT MEDICATIONS: See below. 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, irritable today but cooperative, exhibits good personal hygiene, makes fair eye contact, is dressed in hospital clothing, ambulates with steady gait, appears stated age Speech: Spontaneous and fluid, of normal rate, rhythm, volume Thought processes: Linear and logical, goal-directed Thought content: Perseverates on reexperiencing symptoms and desire to go to treatment in [place] instead of [place], otherwise rational, logical, no paranoia noted Abstract reasoning, and computation: Intact Description of associations: Intact Description of abnormal or psychotic thoughts: Denies any suicidal or homicidal ideation. Denies any auditory or visual hallucinations. Does not appear to be responding to internal stimuli. Does not appear to be endorsing any bizarre or paranoid ideation, denies preoccupation with violence Judgment: Limited Insight: Poor Orientation: Alert and orientated 3 Recent and remote memory: Intact Attention span and concentration: Intact Fund of knowledge: Adequate Mood: "I'm frustrated, my providers are playing mind games with me, they say I have PTSD-like symptoms but no one will tell me I have PTSD." Patient appears irritable, depressed and anxious, no mood lability noted Affect: Constricted, congruent with mood DIAGNOSES: Adjustment disorder with mixed anxiety and depressed mood, rule out MDD, rule out PTSD ASSESSMENT: Patient continues to adjust to unit, has been visible, socializes with select peers, and is participating in some groups. Effexor XR taper has been completed and patient indicates Prozac remains helpful in addressing symptoms of anxiety and depression. Cardura was discontinued due to side effects of dizziness, patient indicates hydroxyzine did not cause dizziness and is today requesting restart to be taken as needed to address symptoms of intermittent anxiety. Patient has indicated that trazodone, Benadryl, and melatonin are ineffective. Patient is requesting Seroquel dose increase in effort to improve mood and sleep latency. Patient continues to indicate he is uncertain if he can keep himself safe if discharged to [facility], denies suicidal and homicidal ideation while in hospital and verbalizes awareness of how to access supportive services on unit if needed. Patient has been encouraged to participate in unit programming. Will continue to monitor patient' s response to medications and monitor for side effects, will also continue to evaluate patient's safety, resolution of suicidal ideation, and discharge readiness. Patient is aware that systems requirements planner is communicating with Darwin Michelle in effort to establish discharge details. Patient is aware that discharge plan, unless communicated otherwise by Darwin Michelle, is currently either to go to [place] for long-term care or to return to [facility] to participate in outpatient behavioral health services. Patient is aware that recommendations for IOP and [facility] program participation will also be made at time of discharge patient does not go to long-term care. MANAGEMENT PLAN: Increase Seroquel to 50 mg po hs PRN insomnia. Initiate hydroxyzine 50 mg po q 6 hours PRN anxiety. Continue Prozac 20 mg po q am. Orthostatics ordered QID Maintain safety precautions Patient to attend groups and participate in unit programming to develop coping strategies Engage patient in discharge planning process and arrange meeting with command to ensure safe discharge planning when appropriate Patient to follow up with Darwin Michelle PCM upon discharge TIME SPENT: 35 minutes. Vital Signs Vital Signs Date Time Temp Pulse Resp B/P (MAP) Pulse Ox O2 Delivery O2 Flow Rate FiO2 09/28/16 06:10 61 128/62 (84) 69 115/59 (77) 89 118/67 (84) 09/27/16 18:00 98.6 16 09/26/16 18:00 Room Air Current Medications Current Medications Acetaminophen (Tylenol Tab) 650 mg Q6HP PRN PO HEADACHE or DISCOMFORT Last administered on 09/27/16 21:30; Start 09/21/16 at 22:30; Stop 10/21/16 at 22:29 Al Hydrox/Mg Hydrox/Simethicone (Mylanta) 30 ml Q4HP PRN PO HEARTBURN/ INDIGESTION; Start 09/21/16 at 22:30; Stop 10/21/16 at 22:29 Albuterol Sulfate (Proventil, Ventolin Hfa) 2 puff QIDP PRN INH SHORTNESS OF BREATH; Start 09/21/16 at 22:00; Stop 10/21/16 at 21:59 Cetirizine HCl (ZyrTEC) 10 mg DAILY PO Last administered on 09/28/16 09:06; Start 09/22/16 at 09:00; Stop 10/22/16 at 08:59 Doxazosin Mesylate (Cardura) 1 mg QHS PO Last administered on 09/25/16 20:55; Start 09/24/16 at 21:00; Stop 09/27/16 at 11:47; Status DC Fluoxetine HCl (PROzac) 20 mg DAILY PO Last administered on 09/28/16 09:06; Start 09/24/16 at 09:00; Stop 10/24/16 at 08:59 Fluticasone Propionate (Flovent Hfa 110 Mcg) 2 puff BID INH Last administered on 09/28/16 09:06; Start 09/21/16 at 21:00; Stop 10/21/16 at 20:59 Home Med (Med Rec Complete!) ASDIRECTED XX ; Start 09/21/16 at 17:30; Stop at 17:30; Status DC Hydroxyzine HCl (Atarax) 25 mg QHS PRN PO INSOMNIA Last administered on 23:25; Start 09/26/16 at 13:45; Stop 09/27/16 at 11:47; Status DC Hydroxyzine HCl (Atarax) 50 mg Q6HP PRN PO anxiety/agitation; Start 09/28/16 at 10:00; Stop 10/28/16 at 09:59; Status UNV Hydroxyzine HCl (Atarax) 50 mg QHS PRN PO INSOMNIA Last administered on 22:09; Start 09/25/16 at 20:15; Stop 09/26/16 at 13:41; Status DC Magnesium Hydroxide (Milk Of Magnesia) 30 ml DAILYPRN PRN PO CONSTIPATION; Start 09/21/16 at 22:30; Stop 10/21/16 at 22:29 Multivitamins (Theragram-M) 1 tab DAILY PO Last administered on 09/28/16 09:06 ; Start 09/22/16 at 09:00; Stop 10/22/16 at 08:59 Nicotine (Nicoderm Cq 21mg) 1 patch QHS TD Last administered on 09/27/16 21:30 ; Start 09/21/16 at 21:00; Stop 10/21/16 at 20:59 Prazosin HCl (Minipress) 6 mg QHS PO Last administered on 09/23/16 21:17; Start 09/21/16 at 21:00; Stop 09/24/16 at 18:04; Status DC Quetiapine Fumarate (SEROquel) 25 mg QHS PRN PO insomnia Last administered on 22:54; Start 09/27/16 at 11:45; Stop 09/28/16 at 09:52; Status DC Quetiapine Fumarate (SEROquel) 50 mg QHS PRN PO insomnia; Start 09/28/16 at 10: 00; Stop 10/28/16 at 09:59; Status UNV Trazodone HCl (Desyrel) 100 mg QHSP PRN PO INSOMNIA Last administered on 22:02; Start 09/21/16 at 22:30; Stop 09/25/16 at 20:08; Status DC Venlafaxine HCl (Effexor Xr) 37.5 mg DAILY PO Last administered on 09:07; Start 09/26/16 at 09:00; Stop 09/26/16 at 10:00; Status DC Venlafaxine HCl (Effexor Xr) 75 mg DAILY PO Last administered on 09/25/16 08:56; Start 09/24/16 at 09:00; Stop 09/25/16 at 20:24; Status DC Venlafaxine HCl (Effexor Xr) 150 mg DAILY PO Last administered on 5/7/17at 08:35; Start 09/22/16 at 09:00; Stop 09/23/16 at 16:11; Status DC Allergies Coded Allergies: No Known Allergies (Unverified , 08/09/16) Judy Mei September 28, 2016 09:54
[2016-09-28 10:20] VITALS: BP_SYST 129; BP_SYST 130; BP_DIAS 60; BP_DIAS 62; BP_DIAS 66
[2016-09-28] MEDS: hydrOXYzine 50 MG TAB PO PRN ×2 (11:51→19:06)
[2016-09-28 18:00] VITALS: BP_SYST 119; BP_SYST 120; BP_SYST 133; BP_DIAS 58; BP_DIAS 62; BP_DIAS 77
[2016-09-28] MEDS: QUEtiapine FUMARATE 50 MG TAB PO PRN (22:05)
[2016-09-28] MEDS: NICOTINE 21MG/24HR 1 EA TRANSDERMAL TD SCH (22:05)
[2016-09-29 06:43] VITALS: BP_SYST 107; BP_SYST 109; BP_SYST 118; BP_DIAS 55; BP_DIAS 68; BP_DIAS 69
[2016-09-29] MEDS: CETIRIZINE (ZyrTEC) 10 MG TAB PO SCH (08:02)
[2016-09-29] MEDS: FLUTICASONE HFA 110 MCG 12 GM INHALER (FLOVENT) INH SCH ×2 (08:03→21:55)
[2016-09-29] MEDS: MULTIVITAMINS/MINERALS THERAP 1 TAB PO SCH (08:03)
[2016-09-29] MEDS: FLUoxetine 20 MG CAP PO SCH (08:03)
[2016-09-29] MEDS: hydrOXYzine 50 MG TAB PO PRN ×2 (11:50→20:20)
[2016-09-29 12:00] VITALS: BP_SYST 103; BP_SYST 105; BP_SYST 111; BP_DIAS 52; BP_DIAS 60; BP_DIAS 61
[2016-09-29] MEDS ORDERED: QUEtiapine FUMARATE 12.5 MG HALF-TAB PO ONE (16:30)
[2016-09-29 18:00] VITALS: BP_SYST 118; BP_DIAS 61; BP_DIAS 62
[2016-09-29] MEDS: QUEtiapine FUMARATE 50 MG TAB PO PRN (21:55)
[2016-09-29] MEDS: NICOTINE 21MG/24HR 1 EA TRANSDERMAL TD SCH (22:13)
[2016-09-30 06:26] VITALS: BP_SYST 107; BP_SYST 111; BP_SYST 124; BP_DIAS 53; BP_DIAS 55; BP_DIAS 65
[2016-09-30] MEDS: FLUoxetine 20 MG CAP PO SCH (09:29)
[2016-09-30] MEDS: CETIRIZINE (ZyrTEC) 10 MG TAB PO SCH (09:29)
[2016-09-30] MEDS: MULTIVITAMINS/MINERALS THERAP 1 TAB PO SCH (09:29)
[2016-09-30] MEDS: FLUTICASONE HFA 110 MCG 12 GM INHALER (FLOVENT) INH SCH ×2 (09:30→21:54)
[2016-09-30] MEDS: QUEtiapine FUMARATE 12.5 MG HALF-TAB PO PRN (15:02)
[2016-09-30 18:00] VITALS: BP_SYST 142; BP_SYST 168; BP_SYST 169; BP_SYST 177; BP_DIAS 74; BP_DIAS 79; BP_DIAS 90
[2016-09-30] MEDS: QUEtiapine FUMARATE 50 MG TAB PO PRN (21:53)
[2016-09-30] MEDS: NICOTINE 21MG/24HR 1 EA TRANSDERMAL TD SCH (21:54)
[2016-10-01 06:31] VITALS: BP_SYST 108; BP_SYST 109; BP_DIAS 57; BP_DIAS 61
[2016-10-01] MEDS: MULTIVITAMINS/MINERALS THERAP 1 TAB PO SCH (08:26)
[2016-10-01] MEDS: FLUoxetine 20 MG CAP PO SCH (08:26)
[2016-10-01] MEDS: CETIRIZINE (ZyrTEC) 10 MG TAB PO SCH (08:27)
[2016-10-01] MEDS: FLUTICASONE HFA 110 MCG 12 GM INHALER (FLOVENT) INH SCH ×2 (08:27→21:51)
--- NOTE | 2016-10-01 09:17 | MHIPNPDOC ---
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 Patient indicates he has not been feeling well psychiatrically since his return from [facility] last year, also has a history of heavy alcohol consumption, notes he participated in [place] and stopped drinking heavily last March, continues to drink occasionally. Telephone Operator Receptionist met with patient today to assess treatment progress on inpatient unit. Patient reports current anxiety level of /10, depression /10, denies suicidal or homicidal ideation, denies auditory or visual hallucinations, denies urge to engage in self-injurious behavior. Patient reiterates today, however, that were he to return to [place] he believes he would be suicidal. Patient reports improvement to sleep with Seroquel, indicates he continues to experience nightmares stating, "the medication helps me sleep but keeps me from waking up during my nightmares and sometimes I like to get up and walk around with him having a nightmare." Patient was also prescribed by weekend provider Seroquel 12.5 mg TID PRN, notes has been taking intermittently with good effect. Patient denies medication side effects. Patient denies new episodes of dizziness, further denies shortness of breath, headache, palpitations, or chest pain. Patient indicates today that he is in agreement with referral to [place] for long-term care, no irritability noted when discussing referral, patient comments on improvement in hopefulness, makes no comment regarding med boarded. Patient continues to feel Prozac is helping to improve mood and reduce symptoms of anxiety, however, indicates he is not sure if medication is as effective as it was when started, will consider dose increase. Patient reports improvement to energy, feels appetite is stabilizing, and denies challenges with concentration and focus. Patient denies physical pain and presents with no signs of acute distress at time of interaction. VITAL SIGNS: See below. NEW TEST RESULTS: See below. Labs on admission indicated low anion gap. Patient has a history of asthma and bilateral lateral inguinal hernia repair. UDS negative on admission 09/25/16 EKG SINUS BRADYCARDIA NO PRIOR CURRENT MEDICATIONS: See below. 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 who is easily engaged, less irritable today, cooperative, exhibits good personal hygiene, makes fair eye contact, is dressed in hospital clothing, ambulates with steady gait, appears stated age Speech: Spontaneous and fluid, of normal rate, rhythm, volume Thought processes: Linear and logical, goal-directed Thought content: Perseverates on reexperiencing symptoms and desire to go to LTC , otherwise rational, logical, no paranoia noted Abstract reasoning, and computation: Intact Description of associations: Intact Description of abnormal or psychotic thoughts: Denies any suicidal or homicidal ideation while in hospital. Denies any auditory or visual hallucinations. Does not appear to be responding to internal stimuli. Does not appear to be endorsing any bizarre or paranoid ideation, denies preoccupation with violence Judgment: Limited Insight: Poor, some improvement noted Orientation: Alert and orientated 3 Recent and remote memory: Intact Attention span and concentration: Intact Fund of knowledge: Adequate Mood: "I'm feeling a little bit better about going to long-term care, I'm hoping it will make me better." No mood lability noted Affect: Mild constriction, brightens frequently DIAGNOSES: Adjustment disorder with mixed anxiety and depressed mood, rule out MDD, rule out PTSD ASSESSMENT: Patient continues to adjust to unit, has been visible, socializes with select peers, and is participating in some groups. Effexor XR taper has been completed due to patient's report of medication ineffectiveness and feeling "flat emotionally," indicates Prozac remains helpful in reducing symptoms of anxiety and depression, notes today he is not sure but states medication may not be as effective as it was when trial was initiated. Cardura was discontinued due to side effects of dizziness, hydroxyzine discontinued due to possible side effects of dizziness and ineffectiveness. In the past patient has also taken prazosin, trazodone, and melatonin which he states were ineffective. Weekend provider initiated Seroquel 12.5 TID to address symptoms of anxiety/agitation. Patient continues to take Seroquel 50 at hs for sleep with good effect reported, denies need for dosing adjustment. Patient denies medication side effects. Patient remains uncertain if he would be able to keep himself safe if discharged to [place], denies suicidal and homicidal ideation while in hospital and verbalizes awareness of how to access supportive services on unit if needed. Patient has been encouraged to participate in unit programming. Will monitor for need for Prozac dose increase and will continue to monitor patient's response to medications and monitor for side effects, will also continue to evaluate patient's safety, resolution of suicidal ideation, and discharge readiness. Patient is aware that transfer to long-term care in [place] is tentatively set for Saturday, turnaround planner is communicating with Darwin Michelle in effort to establish definitive discharge details. Patient is aware that discharge plan, unless communicated otherwise by Darwin Michelle, is currently either to go to [place] for long-term care or to return to [place] to participate in outpatient behavioral health services. Patient is aware that recommendations for IOP and [facility] program participation will also be made at time of discharge patient does not go to long-term care. MANAGEMENT PLAN: Continue Prozac 20 mg po q am. Continue 50 mg po hs PRN insomnia, Seroquel 12.5 mg po TID PRN anxiety/agitation. Orthostatics ordered QID Maintain safety precautions Patient to attend groups and participate in unit programming to develop coping strategies Engage patient in discharge planning process and arrange meeting with command to ensure safe discharge planning when appropriate Patient to follow up with [facility] Michelle PCM upon discharge TIME SPENT: 35 minutes Vital Signs Vital Signs Date Time Temp Pulse Resp B/P (MAP) Pulse Ox O2 Delivery O2 Flow Rate FiO2 10/01/16 06:31 60 108/57 (74) 64 109/61 (77) 70 109/61 (77) 09/30/16 18:00 98.8 16 09/26/16 18:00 Room Air Current Medications Current Medications Acetaminophen (Tylenol Tab) 650 mg Q6HP PRN PO HEADACHE or DISCOMFORT Last administered on 09/27/16t 21:30; Start 09/21/16 at 22:30; Stop 10/21/16 at 22:29 Al Hydrox/Mg Hydrox/Simethicone (Mylanta) 30 ml Q4HP PRN PO HEARTBURN/ INDIGESTION; Start 09/21/16 at 22:30; Stop 10/21/16 at 22:29 Albuterol Sulfate (Proventil, Ventolin Hfa) 2 puff QIDP PRN INH SHORTNESS OF BREATH; Start 09/21/16 at 22:00; Stop 10/21/16 at 21:59 Cetirizine HCl (ZyrTEC) 10 mg DAILY PO Last administered on 10/01/16 08:27; Start 09/22/16 at 09:00; Stop 10/22/16 at 08:59 Doxazosin Mesylate (Cardura) 1 mg QHS PO Last administered on 09/25/16 20:55; Start 09/24/16 at 21:00; Stop 09/27/16 at 11:47; Status DC Fluoxetine HCl (PROzac) 20 mg DAILY PO Last administered on 10/01/16 08:26; Start 09/24/16 at 09:00; Stop 10/24/16 at 08:59 Fluticasone Propionate (Flovent Hfa 110 Mcg) 2 puff BID INH Last administered on 10/01/16 08:27; Start 09/21/16 at 21:00; Stop 10/21/16 at 20:59 Home Med (Med Rec Complete!) ASDIRECTED XX ; Start 09/21/16 at 17:30; Stop at 17:30; Status DC Hydroxyzine HCl (Atarax) 25 mg QHS PRN PO INSOMNIA Last administered on 23:25; Start 09/26/16 at 13:45; Stop 09/27/16 at 11:47; Status DC Hydroxyzine HCl (Atarax) 50 mg Q6HP PRN PO anxiety/agitation Last administered on 09/29/16 20:20; Start 09/28/16 at 10:00; Stop 09/30/16 at 08:37; Status DC Hydroxyzine HCl (Atarax) 50 mg QHS PRN PO INSOMNIA Last administered on 22:09; Start 09/25/16 at 20:15; Stop 09/26/16 at 13:41; Status DC Magnesium Hydroxide (Milk Of Magnesia) 30 ml DAILYPRN PRN PO CONSTIPATION Last administered on 09/30/16 21:53; Start 09/21/16 at 22:30; Stop 10/21/16 at 22:29 Multivitamins (Theragram-M) 1 tab DAILY PO Last administered on 10/01/16 08:26 ; Start 09/22/16 at 09:00; Stop 10/22/16 at 08:59 Nicotine (Nicoderm Cq 21mg) 1 patch QHS TD Last administered on 09/30/16 21:54 ; Start 09/21/16 at 21:00; Stop 10/21/16 at 20:59 Prazosin HCl (Minipress) 6 mg QHS PO Last administered on 09/23/16 21:17; Start 09/21/16 at 21:00; Stop 09/24/16 at 18:04; Status DC Quetiapine Fumarate (SEROquel) 12.5 mg TIDP PRN PO ANXIETY/AGITATION Last administered on 09/30/16 15:02; Start 09/30/16 at 08:45; Stop 10/30/16 at 08:44 Quetiapine Fumarate (SEROquel) 25 mg QHS PRN PO insomnia Last administered on 22:54; Start 09/27/16 at 11:45; Stop 09/28/16 at 09:52; Status DC Quetiapine Fumarate (SEROquel) 50 mg QHS PRN PO insomnia Last administered on 21:53; Start 09/28/16 at 10:00; Stop 10/28/16 at 09:59 Trazodone HCl (Desyrel) 100 mg QHSP PRN PO INSOMNIA Last administered on 22:02; Start 09/21/16 at 22:30; Stop 09/25/16 at 20:08; Status DC Venlafaxine HCl (Effexor Xr) 37.5 mg DAILY PO Last administered on 09:07; Start 09/26/16 at 09:00; Stop 09/26/16 at 10:00; Status DC Venlafaxine HCl (Effexor Xr) 75 mg DAILY PO Last administered on 09/25/16 08:56; Start 09/24/16 at 09:00; Stop 09/25/16 at 20:24; Status DC Venlafaxine HCl (Effexor Xr) 150 mg DAILY PO Last administered on 09/23/16 08:35; Start 09/22/16 at 09:00; Stop 09/23/16 at 16:11; Status DC Allergies Coded Allergies: No Known Allergies (Unverified , 3/23/17) Judy Mei October 01, 2016 09:17
[2016-10-01] MEDS: QUEtiapine FUMARATE 12.5 MG HALF-TAB PO PRN ×2 (12:21→19:48)
[2016-10-01 12:32] VITALS: BP_SYST 128; BP_SYST 131; BP_SYST 132; BP_DIAS 66; BP_DIAS 70; BP_DIAS 82
[2016-10-01 18:00] VITALS: BP_SYST 116; BP_SYST 128; BP_SYST 146; BP_DIAS 58; BP_DIAS 63; BP_DIAS 69
[2016-10-01] MEDS: ACETAMINOPHEN TAB 650MG DOSE (2X325MG) PO PRN (19:48)
[2016-10-01] MEDS: NICOTINE 21MG/24HR 1 EA TRANSDERMAL TD SCH (21:51)
[2016-10-02] MEDS: CETIRIZINE (ZyrTEC) 10 MG TAB PO SCH (08:49)
[2016-10-02] MEDS: MULTIVITAMINS/MINERALS THERAP 1 TAB PO SCH (08:49)
[2016-10-02] MEDS: QUEtiapine FUMARATE 12.5 MG HALF-TAB PO PRN ×2 (08:49→14:29)
[2016-10-02] MEDS: FLUoxetine 20 MG CAP PO SCH (08:49)
[2016-10-02] MEDS: FLUTICASONE HFA 110 MCG 12 GM INHALER (FLOVENT) INH SCH ×2 (08:50→21:00)
[2016-10-02] MEDS ORDERED: QUET5TAB PO (09:25)
[2016-10-02] MEDS ORDERED: FLUO20CA9 PO (09:25)
[2016-10-02] MEDS ORDERED: QUET1TAB7 PO (09:25)
--- NOTE | 2016-10-02 16:54 | MHIPNPDOC ---
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 Patient indicates he has not been feeling well psychiatrically since his return from [facility] last year, also has a history of heavy alcohol consumption, notes he participated in [place] and stopped drinking heavily last March, continues to drink occasionally. Lasting Machine Operator Hand Method met with patient today to assess treatment progress on inpatient unit and discussed plan for discharge tomorrow. Patient reports current anxiety level of 8/10, depression 9/10, denies suicidal or homicidal ideation, denies auditory or visual hallucinations, denies urge to engage in self-injurious behavior. Patient reiterates today, however, that were he to return to [place] he believes he would be suicidal. Patient reports improvement to sleep with Seroquel and reports some improvement to nightmare symptoms, continues to express contradictory feelings pertaining to the medication helping him sleep and simultaneously making it difficult for him to wake up while experiencing nightmares. Patient continues to utilize Seroquel 12.5 mg TID PRN, notes has been taking intermittently with good effect. Patient denies medication side effects. Patient denies new episodes of dizziness, further denies shortness of breath, headache, palpitations, or chest pain. Patient indicates today that he remains in agreement with referral to [place] for long-term care, comments on improvement in hopefulness, makes no comment regarding being med boarded. Patient continues to feel Prozac is helping to improve mood and reduce symptoms of anxiety, denies need for dosing adjustment. Patient reports improvement to energy, feels appetite is stabilizing, and denies challenges with concentration and focus. Patient denies physical pain and presents with no signs of acute distress at time of interaction. VITAL SIGNS: See below. NEW TEST RESULTS: See below. Labs on admission indicated low anion gap. Patient has a history of asthma and bilateral lateral inguinal hernia repair. UDS negative on admission 09/25/16 EKG SINUS BRADYCARDIA NO PRIOR CURRENT MEDICATIONS: See below. MENTAL STATUS EXAMINATION: Patient is 20-year-old active duty [employer] who is easily engaged, less irritable today, cooperative, exhibits good personal hygiene, makes fair eye contact, is dressed in hospital clothing, ambulates with steady gait, appears stated age Speech: Spontaneous and fluid, of normal rate, rhythm, volume Thought processes: Linear and logical, goal-directed Thought content: Perseverates on reexperiencing symptoms and desire to go to LTC , otherwise rational, logical, no paranoia noted Abstract reasoning, and computation: Intact Description of associations: Intact Description of abnormal or psychotic thoughts: Denies any suicidal or homicidal ideation while in hospital. Denies any auditory or visual hallucinations. Does not appear to be responding to internal stimuli. Does not appear to be endorsing any bizarre or paranoid ideation, denies preoccupation with violence Judgment: Limited Insight: Poor, some improvement noted during treatment Orientation: Alert and orientated 3 Recent and remote memory: Intact Attention span and concentration: Intact Fund of knowledge: Adequate Mood: "I'm feeling a little bit better about going to long-term care, I want to get better and be like I was before deployment." No mood lability noted Affect: Mild constriction, brightens frequently DIAGNOSES: Adjustment disorder with mixed anxiety and depressed mood, rule out MDD, rule out PTSD ASSESSMENT: Patient continues to adjust to unit, has been visible, socializes with select peers, and is participating in some groups. Effexor XR taper has been completed due to patient's report of medication ineffectiveness and feeling "flat emotionally," indicates Prozac remains helpful in reducing symptoms of anxiety and depression, notes today he is not sure but states medication may not be as effective as it was when trial was initiated. Cardura was discontinued due to side effects of dizziness, hydroxyzine discontinued due to possible side effects of dizziness and ineffectiveness. In the past patient has also taken prazosin, trazodone, and melatonin which he states were ineffective. Patient has been utilizing Seroquel 12.5 TID PRN to address symptoms of anxiety/agitation. Patient continues to take Seroquel 50 at hs for sleep with good effect reported, denies need for dosing adjustment. Patient denies medication side effects. Patient remains uncertain if he would be able to keep himself safe if discharged to [facility], is in agreement with discharge plan to LTC. Patient denies suicidal and homicidal ideation while in hospital and verbalizes awareness of how to access supportive services on unit if needed. Patient has been encouraged to participate in unit programming. Will continue to monitor patient's response to medications and monitor for side effects, will also continue to evaluate patient's safety, resolution of suicidal ideation, and will prepare patient for discharge tomorrow morning to long-term care. Chain of command meeting occurred today and patient is aware that transfer to long-term care in [place] is scheduled for tomorrow morning. Patient also verbalizes awareness that after completion of long-term care he will return to [facility] outpatient [facility] health for psychotherapy and medication management services and possible evaluation for IOP in [facility] program participation. MANAGEMENT PLAN: Continue Prozac 20 mg po q am, Seroquel 50 mg po hs PRN insomnia, and Seroquel 12.5 mg po TID PRN anxiety/agitation. Patient to discharge tomorrow morning at 03:00 into care command who will escort patient to long-term care in [place] Orthostatics ordered QID Maintain safety precautions Patient to attend groups and participate in unit programming to develop coping strategies Engage patient in discharge planning process and arrange meeting with command to ensure safe discharge planning when appropriate Patient to follow up with long-term care PCM within 5-7 days of discharge TIME SPENT: 35 minutes Vital Signs Vital Signs Date Time Temp Pulse Resp B/P (MAP) Pulse Ox O2 Delivery O2 Flow Rate FiO2 10/01/16 18:00 98.9 16 10/01/16 18:00 65 146/63 (90) 74 128/69 (88) 88 116/58 (77) 09/26/16 18:00 Room Air Current Medications Current Medications Acetaminophen (Tylenol Tab) 650 mg Q6HP PRN PO HEADACHE or DISCOMFORT Last administered on 10/01/16t 19:48; Start 09/21/16 at 22:30; Stop 10/21/16 at 22:29 Al Hydrox/Mg Hydrox/Simethicone (Mylanta) 30 ml Q4HP PRN PO HEARTBURN/ INDIGESTION; Start 09/21/16 at 22:30; Stop 10/21/16 at 22:29 Albuterol Sulfate (Proventil, Ventolin Hfa) 2 puff QIDP PRN INH SHORTNESS OF BREATH; Start 09/21/16 at 22:00; Stop 10/21/16 at 21:59 Cetirizine HCl (ZyrTEC) 10 mg DAILY PO Last administered on 10/02/16 08:49; Start 09/22/16 at 09:00; Stop 10/22/16 at 08:59 Doxazosin Mesylate (Cardura) 1 mg QHS PO Last administered on 09/25/16 20:55; Start 09/24/16 at 21:00; Stop 09/27/16 at 11:47; Status DC Fluoxetine HCl (PROzac) 20 mg DAILY PO Last administered on 10/02/16 08:49; Start 09/24/16 at 09:00; Stop 10/24/16 at 08:59 Fluticasone Propionate (Flovent Hfa 110 Mcg) 2 puff BID INH Last administered on 10/02/16 08:50; Start 09/21/16 at 21:00; Stop 10/21/16 at 20:59 Home Med (Med Rec Complete!) ASDIRECTED XX ; Start 09/21/16 at 17:30; Stop at 17:30; Status DC Hydroxyzine HCl (Atarax) 25 mg QHS PRN PO INSOMNIA Last administered on 23:25; Start 09/26/16 at 13:45; Stop 09/27/16 at 11:47; Status DC Hydroxyzine HCl (Atarax) 50 mg Q6HP PRN PO anxiety/agitation Last administered on 09/29/16 20:20; Start 09/28/16 at 10:00; Stop 09/30/16 at 08:37; Status DC Hydroxyzine HCl (Atarax) 50 mg QHS PRN PO INSOMNIA Last administered on 22:09; Start 09/25/16 at 20:15; Stop 09/26/16 at 13:41; Status DC Magnesium Hydroxide (Milk Of Magnesia) 30 ml DAILYPRN PRN PO CONSTIPATION Last administered on 09/30/16 21:53; Start 09/21/16 at 22:30; Stop 10/21/16 at 22:29 Multivitamins (Theragram-M) 1 tab DAILY PO Last administered on 10/02/16 08:49 ; Start 09/22/16 at 09:00; Stop 10/22/16 at 08:59 Nicotine (Nicoderm Cq 21mg) 1 patch QHS TD Last administered on 10/01/16 21:51 ; Start 09/21/16 at 21:00; Stop 10/21/16 at 20:59 Prazosin HCl (Minipress) 6 mg QHS PO Last administered on 09/23/16 21:17; Start 09/21/16 at 21:00; Stop 09/24/16 at 18:04; Status DC Quetiapine Fumarate (SEROquel) 12.5 mg TIDP PRN PO ANXIETY/AGITATION Last administered on 10/02/16 14:29; Start 09/30/16 at 08:45; Stop 10/30/16 at 08:44 Quetiapine Fumarate (SEROquel) 25 mg QHS PRN PO insomnia Last administered on 22:54; Start 09/27/16 at 11:45; Stop 09/28/16 at 09:52; Status DC Quetiapine Fumarate (SEROquel) 50 mg QHS PRN PO insomnia Last administered on 21:53; Start 09/28/16 at 10:00; Stop 10/28/16 at 09:59 Trazodone HCl (Desyrel) 100 mg QHSP PRN PO INSOMNIA Last administered on 22:02; Start 09/21/16 at 22:30; Stop 09/25/16 at 20:08; Status DC Venlafaxine HCl (Effexor Xr) 37.5 mg DAILY PO Last administered on 09:07; Start 09/26/16 at 09:00; Stop 09/26/16 at 10:00; Status DC Venlafaxine HCl (Effexor Xr) 75 mg DAILY PO Last administered on 09/25/16 08:56; Start 09/24/16 at 09:00; Stop 09/25/16 at 20:24; Status DC Venlafaxine HCl (Effexor Xr) 150 mg DAILY PO Last administered on 09/23/16 08:35; Start 09/22/16 at 09:00; Stop 09/23/16 at 16:11; Status DC Allergies Coded Allergies: No Known Allergies (Unverified , 08/09/16) Judy Mei October 02, 2016 16:54
[2016-10-02 18:24] VITALS: BP 138/73
[2016-10-02] MEDS: NICOTINE 21MG/24HR 1 EA TRANSDERMAL TD SCH (21:00)
[2016-10-02] MEDS ORDERED: FLUT11IN INH (23:34)
[2016-10-02] MEDS ORDERED: MULT1TAB10 PO (23:38)
[2016-10-02] MEDS ORDERED: ZYRT10CA PO (23:38)
[2016-10-03] MEDS: QUEtiapine FUMARATE 12.5 MG HALF-TAB PO PRN (02:59)
[2016-10-03] MEDS: MULTIVITAMINS/MINERALS THERAP 1 TAB PO SCH (02:59)
[2016-10-03] MEDS: CETIRIZINE (ZyrTEC) 10 MG TAB PO SCH (02:59)
[2016-10-03] MEDS: FLUoxetine 20 MG CAP PO SCH (03:00)
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
== END 2016-10-03 03:45 | DRG 882 ==
LOC: M ED 16:35 → M ED INP 19:04 → M PSY 21:17
PROVIDERS: ADMIT Psychiatry & Neurology Psychiatry; ATTEND Psychiatry & Neurology Psychiatry
DX: F43.25 Adjustment disorder with mixed disturbance of emotions and conduct (principal); F43.10 Post-traumatic stress disorder, unspecified; F32.9 Major depressive disorder, single episode, unspecified; J45.909 Unspecified asthma, uncomplicated; Z79.899 Other long term (current) drug therapy; F17.210 Nicotine dependence, cigarettes, uncomplicated